=== PATIENT | female | born 1950 | race American Indian/Alaskan Native ===

== ENCOUNTER 2017-11-23 00:29 | Emergency (ER) | payer MEDICARE, OTHER ==
[2017-11-23] MEDS ORDERED: 50% Dextrose in Water 50 ML Syringe ONE (00:38)
[2017-11-23] MEDS ORDERED: 50% Dextrose in Water 50 ML Syringe IVPUSH ONE (00:40)
[2017-11-23] MEDS ORDERED: Dextrose 10% in Water 1,000 ML IV SCH (00:45)
--- NOTE | 2017-11-23 00:45 | EDM.PDOC ---
ED HPI GENERAL MEDICAL PROBLEM - General Chief Complaint: Diabetic Complaint Stated Complaint: LOW BLOOD SUGAR Time Seen by Provider: 11/23/17 00:35 Source of Information: Reports: EMS, EMS Notes Reviewed, Old Records History Limitations: Reports: No Limitations - History of Present Illness INITIAL COMMENTS - FREE TEXT/NARRATIVE: Chari arrives at [facility] ED by EMS following a call at 11:20 pm by spouse that she was unresponsive. She is a Type II DM on insulin, complicated by chronic renal failure and dialysis. EMS started an IV in the RUE, administered D50W 1 amp, and transported to ED. Upon arrival, patient still somnolent, BS 47 mg%, a second amp of D50W administered, followed by D10W at 100 ml per hr. Her med list is unavailable at this time, and spouse is not present. - Related Data Allergies Allergy/AdvReac Type Severity Reaction Status Date / Time No Known Allergies Allergy Verified 07/27/17 15:30 Home Meds: Home Meds Calcium Carbonate/Vitamin D3 [Calcium 500-Vit D3 200 Caplet] 2 tab PO BID [History] Glucagon,Human Recombinant [Glucagon Emergency Kit] 1 mg SUBCUT ASDIRECTED PRN 06/22/14 [History] Insulin Aspart [Novolog Flexpen] 3 units SUBCUT TIDM 06/22/14 [History] Insulin Glargine,Hum.Rec.Anlog [Lantus Solostar] 2 units SUBCUT QAM 06/22/14 [ History] Mycophenolate Mofetil [Cellcept] 1,000 mg PO BID 06/22/14 [History] cycloSPORINE [SandIMMUNE] 75 mg PO DAILY 06/22/14 [History] Benzonatate 100 mg PO TID PRN 07/27/17 [History] Darbepoetin Ralf in Polysorbat [Aranesp] 100 mcg IJ Q30D 07/27/17 [History] Ferrous Sulfate [Feosol] 325 mg PO TIDMEALS 07/27/17 [History] Furosemide 40 mg PO DAILY 07/27/17 [History] Labetalol [Normodyne] 100 mg PO BID 07/27/17 [History] Sodium Bicarbonate 650 mg PO BID 07/27/17 [History] amLODIPine [Norvasc] 5 mg PO DAILY 07/27/17 [History] hydrALAZINE [Apresoline] 10 mg PO BID 07/27/17 [History] Calcium Acetate [PhosLo] 667 mg TIDMEALS 11/23/17 [History] Loperamide [Imodium] 2 mg PO TID 11/23/17 [History] cycloSPORINE [Cyclosporine] 50 mg BEDTIME 11/23/17 [History] Past Medical History HEENT History: Reports: Other (See Below) 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 Cardiovascular History: Reports: High Cholesterol, Hypertension, Syncope, Other (See Below) Other Cardiovascular History: hyperlipidemia Gastrointestinal History: Reports: Irritable Bowel Syndrome Genitourinary History: Reports: Acute Renal Failure, Chronic Renal Insuffiency Musculoskeletal History: Reports: Osteoporosis Endocrine/Metabolic History: Reports: Diabetes, Type II Hematologic History: Reports: Anemia - Past Surgical History HEENT Surgical History: Reports: Other (See Below) Other HEENT Surgeries/Procedures: vitrectomy right eye GI Surgical History: Reports: Colonoscopy Female Surgical History: Reports: Other (See Below) Other Female Surgeries/Procedures: kidney transplant, dialysis fistula creation, Musculoskeletal Surgical History: Reports: Other (See Below) Other Musculoskeletal Surgeries/Procedures:: bone replaced by transplant Social & Family History - Tobacco Use Smoking Status *Q: Never Smoker Second Hand Smoke Exposure: No - Caffeine Use Caffeine Use: Reports: Soda - Recreational Drug Use Recreational Drug Use: No Drug Use in Last 12 Months: No ED ROS GENERAL - Review of Systems Review Of Systems: Unable To Obtain ED EXAM GENERAL NO PERIP PULSE - Physical Exam Exam: See Below Exam Limited By: Altered Mental Status General Appearance: No Apparent Distress, Lethargic Eye Exam: Bilateral Eye: EOMI, Normal Inspection, PERRL Ears: Normal External Exam Nose: Normal Inspection Throat/Mouth: Normal Inspection Head: Atraumatic, Normocephalic Neck: Normal Inspection, Supple, Non-Tender Respiratory/Chest: Lungs Clear, Normal Breath Sounds, Chest Non-Tender Cardiovascular: Regular Rate, Rhythm, No Edema, No Murmur GI/Abdominal: Normal Bowel Sounds, Soft, Non-Tender, No Organomegaly, No Distention, No Mass Back Exam: Normal Inspection Extremities: Normal Inspection, Other (fistula L elbow) Psychiatric: Flat Affect Skin Exam: Dry, Intact, No Rash, Cool Lymphatic: No Adenopathy Course - Vital Signs Text/Narrative:: Following assessment at the [facility] ED, a second amp of D50W was given which improved mentation. An IV D10W has also running at 100 ml/hr with improvement of BS 145 mg%. Screening labs noted Cr 5.4, BUN 40, P 5.9, BS 40 mg%, Hgb 12.1, WBC 7600, plts normal; BSs slowly improved over the next 3 hours. Patient was alert, orientated, and cooperative. Last Recorded V/S: Last Vital Signs Temp 33.9 C L 11/23/17 00:29 Pulse 48 L 11/23/17 00:29 Resp 12 11/23/17 00:29 BP 157/53 H 11/23/17 00:29 Pulse Ox 92 L 11/23/17 00:29 - Orders/Labs/Meds Orders: Active Orders 24 hr Category Date Time Status Dextrose 10% in Water 1,000 ml Med 11/23/17 00:45 Active IV ASDIRECTED Medication Orders Dextrose/Water (Dextrose 10% In Water) 1,000 mls @ 500 mls/hr IV ASDIRECTED [facility] Labs: Laboratory Tests 11/23/17 11/23/17 11/23/17 Range/Units 00:38 00:42 00:42 WBC 7.6 (4.5-12.0) X10-3/uL RBC 3.87 (3.23-5.20) x10(6)uL Hgb 12.1 (11.5-15.5) g/dL Hct 36.9 (30.0-51.3) % MCV 95.3 (80-96) fL MCH 31.3 (27.7-33.6) pg MCHC 32.9 (32.2-35.4) g/dL RDW 14.0 (11.5-15.5) % Plt Count 226 (125-369) X10(3)uL MPV 9.0 (7.4-10.4) fL Add Manual Diff Yes Neutrophils % (Manual) 66 (46-82) % Band Neutrophils % 2 (0-6) % Lymphocytes % (Manual) 22 (13-37) % Monocytes % (Manual) 8 (4-12) % Eosinophils % (Manual) 2 (0-5) % Sodium 139 (135-145) mmol/L Potassium 4.4 (3.5-5.3) mmol/L Chloride 105 (100-110) mmol/L Carbon Dioxide 25 (21-32) mmol/L BUN 44 H (7-18) mg/dL Creatinine 5.4 H* (0.55-1.02) mg/dL Est Cr Clr Drug Dosing TNP Estimated GFR (MDRD) 8 L (>60) BUN/Creatinine Ratio 8.1 L (9-20) Glucose 40 L* (80-116) mg/dL POC Glucose 41 L (80-116) mg/dL Calcium 8.1 L (8.6-10.2) mg/dL Phosphorus 5.9 H (2.6-4.6) mg/dL 11/23/17 11/23/17 11/23/17 Range/Units 01:04 02:02 02:34 WBC (4.5-12.0) X10-3/uL RBC (3.23-5.20) x10(6)uL Hgb (11.5-15.5) g/dL Hct (30.0-51.3) % MCV (80-96) fL MCH (27.7-33.6) pg MCHC (32.2-35.4) g/dL RDW (11.5-15.5) % Plt Count (125-369) X10(3)uL MPV (7.4-10.4) fL Add Manual Diff Neutrophils % (Manual) (46-82) % Band Neutrophils % (0-6) % Lymphocytes % (Manual) (13-37) % Monocytes % (Manual) (4-12) % Eosinophils % (Manual) (0-5) % Sodium (135-145) mmol/L Potassium (3.5-5.3) mmol/L Chloride (100-110) mmol/L Carbon Dioxide (21-32) mmol/L BUN (7-18) mg/dL Creatinine (0.55-1.02) mg/dL Est Cr Clr Drug Dosing Estimated GFR (MDRD) (>60) BUN/Creatinine Ratio (9-20) Glucose (80-116) mg/dL POC Glucose 151 H D 59 L D 63 L (80-116) mg/dL Calcium (8.6-10.2) mg/dL Phosphorus (2.6-4.6) mg/dL 11/23/17 11/23/17 11/23/17 Range/Units 03:07 03:39 04:13 WBC (4.5-12.0) X10-3/uL RBC (3.23-5.20) x10(6)uL Hgb (11.5-15.5) g/dL Hct (30.0-51.3) % MCV (80-96) fL MCH (27.7-33.6) pg MCHC (32.2-35.4) g/dL RDW (11.5-15.5) % Plt Count (125-369) X10(3)uL MPV (7.4-10.4) fL Add Manual Diff Neutrophils % (Manual) (46-82) % Band Neutrophils % (0-6) % Lymphocytes % (Manual) (13-37) % Monocytes % (Manual) (4-12) % Eosinophils % (Manual) (0-5) % Sodium (135-145) mmol/L Potassium (3.5-5.3) mmol/L Chloride (100-110) mmol/L Carbon Dioxide (21-32) mmol/L BUN (7-18) mg/dL Creatinine (0.55-1.02) mg/dL Est Cr Clr Drug Dosing Estimated GFR (MDRD) (>60) BUN/Creatinine Ratio (9-20) Glucose (80-116) mg/dL POC Glucose 103 133 H 190 H (80-116) mg/dL Calcium (8.6-10.2) mg/dL Phosphorus (2.6-4.6) mg/dL Meds: Medications Generic Name Dose Route Start Last Admin Trade Name Freq PRN Reason Stop Dose Admin Dextrose/Water 1,000 mls @ 500 mls/hr 11/23/17 00:45 Dextrose 10% In Water IV ASDIRECTED [facility] Discontinued Medications Generic Name Dose Route Start Last Admin Trade Name Freq PRN Reason Stop Dose Admin Dextrose/Water Confirm 11/23/17 00:38 Dextrose 50% In Water Administered 11/23/17 00:39 Dose 50 ml .ROUTE .STK-MED ONE Dextrose/Water 50 ml 11/23/17 00:40 Dextrose 50% In Water IVPUSH 11/23/17 00:41 ONETIME ONE Departure - Departure Time of Disposition: 04:30 Disposition: Home, Self-Care 01 Condition: Fair Clinical Impression: Hypoglycemia - Discharge Information Referrals: Svitlana Damon, [facility]OU[facility] AIDE [Primary Care Provider] - Forms: ED Department Discharge - Problem List & Annotations (1) Hypoglycemia SNOMED Code(s): 876001722 Code(s): E16.2 - HYPOGLYCEMIA, UNSPECIFIED Status: Acute Current Visit: Yes Annotation/Comment:: Chari took some solid food and some beverages before discharge, and was encouraged to do so at home this am. - Problem List Review Problem List Initiated/Reviewed/Updated: Yes - My Orders Last 24 Hours: My Active Orders 11/23/17 00:45 Dextrose 10% in Water 1,000 ml IV ASDIRECTED - Assessment/Plan Last 24 Hours: My Active Orders 11/23/17 00:45 Dextrose 10% in Water 1,000 ml IV ASDIRECTED Plan: Follow up with PCP if needed.
[2017-11-23 03:52] VITALS: BP 157/53
== END 2017-11-23 04:54 | disposition home or self-care (01) ==
LOC: FB.ED 00:29
DX: E11.649 Type 2 diabetes mellitus with hypoglycemia without coma (principal); E11.22 Type 2 diabetes mellitus with diabetic chronic kidney disease; I12.9 Hypertensive chronic kidney disease with stage 1 through stage 4 chronic kidney disease, or unspecified chronic kidney disease; N18.9 Chronic kidney disease, unspecified; E78.00 Pure hypercholesterolemia, unspecified; Z79.4 Long term (current) use of insulin; Z79.899 Other long term (current) drug therapy; Z94.0 Kidney transplant status
CPT/HCPCS: 36415; 80048; 82962; 84100; 85025; 96361; 96374; 99284; J7060

== ENCOUNTER 2020-03-31 16:51 | Inpatient (IN) | payer MEDICARE, OTHER ==
--- NOTE | 2020-03-31 17:06 | EDM.PDOC ---
ED HPI GENERAL MEDICAL PROBLEM - General Time Seen by Provider: 03/31/20 17:02 Source of Information: Reports: Patient History Limitations: Reports: No Limitations - History of Present Illness INITIAL COMMENTS - FREE TEXT/NARRATIVE: pt comes from home with c/o profound weakness, dry cough , recurrent emesis and watery diarrhea since yesterday along with fever and chills, denies noticing blood, or SOB or any other associated sx , also denies recent travel or known sick contact. report Hx of DM and Hx of CRI . pt has Hx of HD followed by Kidney transplant about a year ago. - Related Data Allergies Allergy/AdvReac Type Severity Reaction Status Date / Time No Known Allergies Allergy Verified 03/31/20 17:28 Home Meds: Home Meds Insulin Aspart [Novolog Flexpen] 5 units SUBCUT TIDM 06/22/14 [History] Insulin Glargine,Hum.Rec.Anlog [Lantus Solostar] 20 units SUBCUT QAM 06/22/14 [History] Sodium Bicarbonate 650 mg PO BID 07/27/17 [History] amLODIPine [Norvasc] 10 mg PO BEDTIME 07/27/17 [History] Acetaminophen [Pain Relief] 650 mg PO Q4HR PRN 03/31/20 [History] Aspirin [Aspir 81] 81 mg PO DAILY 03/31/20 [History] Cholecalciferol (Vitamin D3) [Vitamin D3] 2,000 unit PO DAILY 03/31/20 [History] Dapsone 50 mg PO DAILY 03/31/20 [History] Mycophenolate Sodium [Mycophenolic Acid] 720 mg PO BID 03/31/20 [History] Tacrolimus [Prograf] 1 mg PO DAILY 03/31/20 [History] atorvaSTATin [Lipitor] 10 mg PO BEDTIME 03/31/20 [History] carvediloL [Carvedilol] 12.5 mg PO BID 03/31/20 [History] metFORMIN HCl [Metformin HCl] 500 mg PO DAILY 03/31/20 [History] Past Medical History HEENT History: Reports: Other (See Below) 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 Cardiovascular History: Reports: High Cholesterol, Hypertension, Syncope, Other (See Below) Other Cardiovascular History: hyperlipidemia Gastrointestinal History: Reports: Irritable Bowel Syndrome Genitourinary History: Reports: Acute Renal Failure, Chronic Renal Insuffiency HAND 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 History: Reports: Other HAND DEVELOPER History: Musculoskeletal History: Reports: Osteoporosis Endocrine/Metabolic History: Reports: Diabetes, Type II Hematologic History: Reports: Anemia Immunologic History: Reports: Solid Organ Transplant Other Immunologic History: L kidney transplant - Infectious Disease History Infectious Disease History: Reports: C-Difficile, Mumps - Past Surgical History HEENT Surgical History: Reports: Other (See Below) Other HEENT Surgeries/Procedures: vitrectomy right eye GI Surgical History: Reports: Colonoscopy Female Surgical History: Reports: Other (See Below) Other Female Surgeries/Procedures: kidney transplant, dialysis fistula creation, Musculoskeletal Surgical History: Reports: Other (See Below) Other Musculoskeletal Surgeries/Procedures:: bone replaced by transplant Social & Family History - Family History Family Medical History: Noncontributory - Caffeine Use Caffeine Use: Reports: Soda ED ROS GENERAL - Review of Systems Review Of Systems: See Below Constitutional: Reports: Fever, Chills, Fatigue HEENT: Reports: No Symptoms Respiratory: Reports: Cough. Denies: Shortness of Breath, Wheezing Cardiovascular: Reports: No Symptoms, Dyspnea on Exertion. Denies: Chest Pain GI/Abdominal: Reports: Anorexia, Diarrhea, Nausea, Vomiting. Denies: Black Stool, Bloody Stool : Reports: No Symptoms Musculoskeletal: Reports: No Symptoms Skin: Reports: No Symptoms Neurological: Reports: No Symptoms ED EXAM, GENERAL - Physical Exam Exam: See Below Exam Limited By: No Limitations General Appearance: Alert, Moderate Distress Eye Exam: Bilateral Eye: Normal Inspection Ears: Normal External Exam Nose: Normal Inspection Throat/Mouth: Normal Inspection, Other (dry oral mucosa noted. ) Head: Atraumatic, Normocephalic Neck: Normal Inspection, Supple, Non-Tender Respiratory/Chest: No Respiratory Distress, Lungs Clear, Normal Breath Sounds Cardiovascular: Normal Peripheral Pulses, Regular Rate, Rhythm GI/Abdominal: Normal Bowel Sounds, Soft, Non-Tender, No Organomegaly Back Exam: Normal Inspection Extremities: Normal Inspection Neurological: Alert, Oriented, CN II-XII Intact, Normal Reflexes Skin Exam: Warm Course - Vital Signs Text/Narrative:: labs and CXR results were explained to pt. pt is resting comfortably after fluids and O2 and tylenol. pt has ? infl at RLL and UTI . will admit acute, blood culture were taken , rocephin and zithromax will be started. Last Recorded V/S: Last Vital Signs Temp 39.3 C H 03/31/20 16:51 Pulse 100 03/31/20 16:51 Resp 16 03/31/20 16:51 BP 146/53 H 03/31/20 16:51 Pulse Ox 84 L 03/31/20 16:51 - Orders/Labs/Meds Orders: Active Orders 24 hr Category Date Time Status Patient Status [ADT] Routine ADT 03/31/20 18:42 Active Blood Glucose Check, Bedside [RC] TIDMEALS Care 03/31/20 18:33 Active Oxygen Therapy [RC] PRN Care 03/31/20 18:42 Active RT Aerosol Therapy [RC] ASDIRECTED Care 03/31/20 18:46 Active Up With Assistance [RC] ASDIRECTED Care 03/31/20 18:33 Active VTE/DVT Education [RC] Per Unit Routine Care 03/31/20 18:42 Active Vital Signs [RC] Q4H Care 03/31/20 18:42 Active Consistent Carbohydrate Diet [DIET] Diet 03/31/20 Dinner Ordered Chest 1V Frontal [CR] Stat Exams 03/31/20 17:07 Taken BASIC METABOLIC PANEL,BMP [CHEM] AM Lab 04/01/20 05:11 Ordered CBC WITH AUTO DIFF [HEME] AM Lab 04/01/20 05:11 Ordered CULTURE BLOOD [BC] Urgent Lab 03/31/20 17:00 Received CULTURE BLOOD [BC] Urgent Lab 03/31/20 17:10 Received LACTIC ACID [CHEM] Stat Lab 03/31/20 17:10 Received Albuterol [Proventil Neb Soln] Med 03/31/20 18:33 Active 2.5 mg NEB Q2H PRN Azithromycin [Zithromax] 500 mg Med 03/31/20 18:45 Active Sodium Chloride 0.9% [Normal Saline (AdvBag)] 250 ml IV Q24H Enoxaparin [Lovenox] Med 03/31/20 18:45 Active 40 mg SUBCUT Q24H Ondansetron [Zofran ODT] Med 03/31/20 18:33 Active 4 mg PO Q4H PRN Sodium Chloride 0.9% [Normal Saline] 1,000 ml Med 03/31/20 18:45 Active IV ASDIRECTED Zolpidem [Ambien] Med 03/31/20 18:33 Active 5 mg PO BEDTIME PRN cefTRIAXone [Rocephin] 1 gm Med 03/31/20 18:45 Active Sodium Chloride 0.9% [Normal Saline] 50 ml IV Q24H polyethylene glycoL 3350 [MiraLAX] Med 03/31/20 18:33 Active 17 gm PO DAILY PRN Blood Culture x2 Reflex Set [OM.PC] Urgent Oth 03/31/20 18:30 Ordered Resuscitation Status Routine Resus Stat 03/31/20 18:33 Ordered Medication Orders Albuterol (Proventil Neb Soln) 2.5 mg NEB Q2H PRN PRN Reason: Shortness Of Breath/wheezing Amlodipine Besylate (Norvasc) 10 mg PO BEDTIME [facility] Aspirin (Halfprin) 81 mg PO DAILY [facility] Atorvastatin Calcium (Lipitor) 10 mg PO BEDTIME [facility] Carvedilol (Coreg) 12.5 mg PO BID [facility] Enoxaparin Sodium (Lovenox) 40 mg SUBCUT Q24H [facility] Ceftriaxone Sodium 1 gm/ (Sodium Chloride) 50 mls @ 200 mls/hr IV Q24H [facility] Azithromycin 500 mg/ Sodium (Chloride) 250 mls @ 250 mls/hr IV Q24H [facility] Sodium Chloride (Normal Saline) 1,000 mls @ 125 mls/hr IV ASDIRECTED [facility] Insulin Glargine (Lantus Solostar) 20 units SUBCUT QAM [facility] Metformin HCl (Glucophage) 500 mg PO DAILY [facility] Non-Formulary Medication (Acetaminophen [Acetaminophen]) 650 mg PO Q4HR PRN PRN Reason: Pain Non-Formulary Medication (Insulin Aspart [Novolog Flexpen]) 5 units SUBCUT TIDM [facility] Ondansetron HCl (Zofran Odt) 4 mg PO Q4H PRN PRN Reason: nausea, able to take PO Polyethylene Glycol (Miralax) 17 gm PO DAILY PRN PRN Reason: Constipation Sodium Bicarbonate (Sodium Bicarbonate) 650 mg PO BID [facility] Zolpidem Tartrate (Ambien) 5 mg PO BEDTIME PRN PRN Reason: Sleep Labs: Laboratory Tests 03/31/20 03/31/20 03/31/20 Range/Units 17:10 17:10 17:30 WBC 23.9 H (4.5-12.0) X10-3/uL RBC 3.65 (3.23-5.20) x10(6)uL Hgb 11.2 L (11.5-15.5) g/dL Hct 34.8 (30.0-51.3) % MCV 95.4 (80-96) fL MCH 30.6 (27.7-33.6) pg MCHC 32.1 L (32.2-35.4) g/dL RDW 13.8 (11.5-15.5) % Plt Count 209 (125-369) X10(3)uL Sodium 135 (135-145) mmol/L Potassium 4.2 (3.5-5.3) mmol/L Chloride 99 L D (100-110) mmol/L Carbon Dioxide 23 (21-32) mmol/L BUN 27 H D (7-18) mg/dL Creatinine 1.4 H (0.55-1.02) mg/dL Est Cr Clr Drug Dosing TNP Estimated GFR (MDRD) 37 L (>60) BUN/Creatinine Ratio 19.3 (9-20) Glucose 292 H D (80-116) mg/dL Calcium 8.5 L (8.6-10.2) mg/dL Total Bilirubin 0.8 (0.1-1.3) mg/dL AST 27 H (5-25) IU/L ALT 25 (12-36) U/L Alkaline Phosphatase 110 (56-112) IU/L Total Protein 7.6 (6.0-8.0) g/dL Albumin 3.5 (3.2-4.6) g/dL Globulin 4.1 g/dL Albumin/Globulin Ratio 0.9 Urine Color (YELLOW) Urine Appearance (CLEAR) Urine pH (5.0-6.5) Ur Specific [place] (1.010-1.025) Urine Protein (NEGATIVE) mg/dL Urine Glucose (UA) (NORMAL) mg/dL Urine Ketones (NEGATIVE) mg/dL Urine Occult Blood (NEGATIVE) Urine Nitrite (NEGATIVE) Urine Bilirubin (NEGATIVE) Urine Urobilinogen (NEGATIVE) mg/dL Ur Leukocyte Esterase (NEGATIVE) Urine RBC (0-5) Urine WBC (0-5) Ur Squamous Epith Cells (NS,R,O) Urine Bacteria (NS) SARS Virus RNA (PCR) Negative (NEGATIVE) 03/31/20 Range/Units 18:30 WBC (4.5-12.0) X10-3/uL RBC (3.23-5.20) x10(6)uL Hgb (11.5-15.5) g/dL Hct (30.0-51.3) % MCV (80-96) fL MCH (27.7-33.6) pg MCHC (32.2-35.4) g/dL RDW (11.5-15.5) % Plt Count (125-369) X10(3)uL Sodium (135-145) mmol/L Potassium (3.5-5.3) mmol/L Chloride (100-110) mmol/L Carbon Dioxide (21-32) mmol/L BUN (7-18) mg/dL Creatinine (0.55-1.02) mg/dL Est Cr Clr Drug Dosing Estimated GFR (MDRD) (>60) BUN/Creatinine Ratio (9-20) Glucose (80-116) mg/dL Calcium (8.6-10.2) mg/dL Total Bilirubin (0.1-1.3) mg/dL AST (5-25) IU/L ALT (12-36) U/L Alkaline Phosphatase (56-112) IU/L Total Protein (6.0-8.0) g/dL Albumin (3.2-4.6) g/dL Globulin g/dL Albumin/Globulin Ratio Urine Color Yellow (YELLOW) Urine Appearance Slightly cloudy (CLEAR) Urine pH 5.0 (5.0-6.5) Ur Specific [place] 1.015 (1.010-1.025) Urine Protein Trace (NEGATIVE) mg/dL Urine Glucose (UA) 100 H (NORMAL) mg/dL Urine Ketones 15 H (NEGATIVE) mg/dL Urine Occult Blood Moderate H (NEGATIVE) Urine Nitrite Positive H (NEGATIVE) Urine Bilirubin Negative (NEGATIVE) Urine Urobilinogen Normal (NEGATIVE) mg/dL Ur Leukocyte Esterase Small H (NEGATIVE) Urine RBC 5-10 H (0-5) Urine WBC 10-20 H (0-5) Ur Squamous Epith Cells Rare (NS,R,O) Urine Bacteria Many H (NS) SARS Virus RNA (PCR) (NEGATIVE) Meds: Medications Generic Name Dose Route Start Last Admin Trade Name Freq PRN Reason Stop Dose Admin Albuterol 2.5 mg 03/31/20 18:33 Proventil Neb Soln NEB Q2H PRN Shortness Of Breath/wheezing Amlodipine Besylate 10 mg 03/31/20 21:00 Norvasc PO BEDTIME [facility] Aspirin 81 mg 04/01/20 09:00 Halfprin PO DAILY [facility] Atorvastatin Calcium 10 mg 03/31/20 21:00 Lipitor PO BEDTIME [facility] Carvedilol 12.5 mg 03/31/20 21:00 Coreg PO BID [facility] Enoxaparin Sodium 40 mg 03/31/20 18:45 Lovenox SUBCUT Q24H [facility] Ceftriaxone Sodium 1 gm/ 50 mls @ 200 mls/hr 03/31/20 18:45 Sodium Chloride IV Q24H [facility] Azithromycin 500 mg/ Sodium 250 mls @ 250 mls/hr 03/31/20 18:45 Chloride IV Q24H [facility] Sodium Chloride 1,000 mls @ 125 mls/hr 03/31/20 18:45 Normal Saline IV ASDIRECTED [facility] Insulin Glargine 20 units 04/01/20 06:00 Lantus Solostar SUBCUT QAM [facility] Metformin HCl 500 mg 04/01/20 09:00 Glucophage PO DAILY [facility] Non-Formulary Medication 650 mg 03/31/20 18:47 Acetaminophen [Acetaminophen] PO Q4HR PRN Pain Non-Formulary Medication 5 units 04/01/20 08:00 Insulin Aspart [Novolog Flexpen] SUBCUT TIDM [facility] Ondansetron HCl 4 mg 03/31/20 18:33 Zofran Odt PO Q4H PRN nausea, able to take PO Polyethylene Glycol 17 gm 03/31/20 18:33 Miralax PO DAILY PRN Constipation Sodium Bicarbonate 650 mg 03/31/20 21:00 Sodium Bicarbonate PO BID [facility] Zolpidem Tartrate 5 mg 03/31/20 18:33 Ambien PO BEDTIME PRN Sleep Discontinued Medications Generic Name Dose Route Start Last Admin Trade Name Freq PRN Reason Stop Dose Admin Acetaminophen 650 mg 03/31/20 17:09 03/31/20 17:59 Tylenol PO 03/31/20 17:10 650 mg NOW ONE Administration Sodium Chloride 500 mls @ 999 drops/min 03/31/20 17:07 03/31/20 17:05 Normal Saline IV 03/31/20 17:14 999 drops/min .BOLUS ONE Administration Sodium Chloride 500 mls @ 999 mls/hr 03/31/20 17:20 Normal Saline IV 03/31/20 17:50 .BOLUS ONE Ondansetron HCl 4 mg 03/31/20 17:07 03/31/20 17:59 Zofran IVPUSH 03/31/20 17:08 4 mg ONETIME ONE Administration Departure - Departure Time of Disposition: 18:54 Disposition: Admitted As Inpatient 66 Clinical Impression: Pneumonia - Discharge Information Sepsis Event Note (ED) - Focused Exam Vital Signs: Vital Signs Temp Pulse Resp BP Pulse Ox 03/31/20 16:51 39.3 C H 100 16 146/53 H 84 L - My Orders Last 24 Hours: My Active Orders 03/31/20 Dinner Consistent Carbohydrate Diet [DIET] 03/31/20 17:00 CULTURE BLOOD [BC] Urgent 03/31/20 17:07 Chest 1V Frontal [CR] Stat 03/31/20 17:10 CULTURE BLOOD [BC] Urgent LACTIC ACID [CHEM] Stat 03/31/20 18:30 Blood Culture x2 Reflex Set [OM.PC] Urgent 03/31/20 18:33 Blood Glucose Check, Bedside [RC] TIDMEALS Up With Assistance [RC] ASDIRECTED Albuterol [Proventil Neb Soln] 2.5 mg NEB Q2H PRN Ondansetron [Zofran ODT] 4 mg PO Q4H PRN Zolpidem [Ambien] 5 mg PO BEDTIME PRN polyethylene glycoL 3350 [MiraLAX] 17 gm PO DAILY PRN Resuscitation Status Routine 03/31/20 18:42 Patient Status [ADT] Routine Oxygen Therapy [RC] PRN VTE/DVT Education [RC] Per Unit Routine Vital Signs [RC] Q4H 03/31/20 18:45 Azithromycin [Zithromax] 500 mg Sodium Chloride 0.9% [Normal Saline (AdvBag)] 250 ml IV Q24H Enoxaparin [Lovenox] 40 mg SUBCUT Q24H Sodium Chloride 0.9% [Normal Saline] 1,000 ml IV ASDIRECTED cefTRIAXone [Rocephin] 1 gm Sodium Chloride 0.9% [Normal Saline] 50 ml IV Q24H 03/31/20 18:46 RT Aerosol Therapy [RC] ASDIRECTED 04/01/20 05:11 BASIC METABOLIC PANEL,BMP [CHEM] AM CBC WITH AUTO DIFF [HEME] AM - Assessment/Plan Last 24 Hours: My Active Orders 03/31/20 Dinner Consistent Carbohydrate Diet [DIET] 03/31/20 17:00 CULTURE BLOOD [BC] Urgent 03/31/20 17:07 Chest 1V Frontal [CR] Stat 03/31/20 17:10 CULTURE BLOOD [BC] Urgent LACTIC ACID [CHEM] Stat 03/31/20 18:30 Blood Culture x2 Reflex Set [OM.PC] Urgent 03/31/20 18:33 Blood Glucose Check, Bedside [RC] TIDMEALS Up With Assistance [RC] ASDIRECTED Albuterol [Proventil Neb Soln] 2.5 mg NEB Q2H PRN Ondansetron [Zofran ODT] 4 mg PO Q4H PRN Zolpidem [Ambien] 5 mg PO BEDTIME PRN polyethylene glycoL 3350 [MiraLAX] 17 gm PO DAILY PRN Resuscitation Status Routine 03/31/20 18:42 Patient Status [ADT] Routine Oxygen Therapy [RC] PRN VTE/DVT Education [RC] Per Unit Routine Vital Signs [RC] Q4H 03/31/20 18:45 Azithromycin [Zithromax] 500 mg Sodium Chloride 0.9% [Normal Saline (AdvBag)] 250 ml IV Q24H Enoxaparin [Lovenox] 40 mg SUBCUT Q24H Sodium Chloride 0.9% [Normal Saline] 1,000 ml IV ASDIRECTED cefTRIAXone [Rocephin] 1 gm Sodium Chloride 0.9% [Normal Saline] 50 ml IV Q24H 03/31/20 18:46 RT Aerosol Therapy [RC] ASDIRECTED 04/01/20 05:11 BASIC METABOLIC PANEL,BMP [CHEM] AM CBC WITH AUTO DIFF [HEME] AM
[2020-03-31] MEDS ORDERED: Ondansetron 4 MG/2 ML SDV IVPUSH ONE (17:07)
[2020-03-31] MEDS ORDERED: Sodium Chloride 0.9% 500 ML IV ONE ×2 (17:07→17:20)
[2020-03-31] MEDS ORDERED: Acetaminophen 325 MG Tab PO ONE (17:09)
[2020-03-31] MEDS ORDERED: Zolpidem 5 MG Tab PO PRN (18:33)
[2020-03-31] MEDS ORDERED: Albuterol 0.083% 2.5 MG/3 ML Neb Soln NEB PRN (18:33)
[2020-03-31] MEDS ORDERED: Polyethylene Glycol 3350 Powder 17 GM Packet PO PRN (18:33)
[2020-03-31] MEDS ORDERED: Azithromycin 500 MG in Sodium Chloride 0.9% 250 ML IV SCH (18:45)
[2020-03-31] MEDS ORDERED: cefTRIAXone 1 GM in Sodium Chloride 0.9% 50 ML IV SCH (18:45)
[2020-03-31] MEDS: Sodium Chloride 0.9% 1,000 ML IV SCH (18:50)
[2020-03-31] MEDS: Enoxaparin 40 MG/0.4 ML Syringe SUBCUT SCH (20:08)
[2020-03-31] MEDS ORDERED: amLODIPine 5 MG Tab PO SCH (21:00)
[2020-03-31] MEDS: cefTRIAXone 1 GM Vial IVPUSH SCH (21:11)
[2020-03-31] MEDS: Carvedilol 12.5 MG Tab PO SCH (22:31)
[2020-03-31] MEDS: atorvaSTATin 10 MG Tab PO SCH (22:32)
[2020-03-31] MEDS: Sodium Bicarbonate 650 MG Tab PO SCH (22:33)
[2020-03-31] MEDS: Ondansetron 4 MG Tab.DIS PO PRN (22:37)
[2020-03-31] MEDS: Acetaminophen 325 MG Tab PO PRN (22:40)
[2020-03-31] MEDS ORDERED: Tacrolimus 1 MG Cap PO ONE (23:00)
[2020-03-31] MEDS: MYCOPHENOLATE 180 MG PO SCH (23:14)
[2020-04-01] MEDS: Acetaminophen 325 MG Tab PO PRN ×4 (03:26→16:38)
[2020-04-01] MEDS: Ondansetron 4 MG Tab.DIS PO PRN ×2 (03:45→08:37)
[2020-04-01] MEDS: Sodium Chloride 0.9% 1,000 ML IV SCH ×3 (04:10→22:13)
[2020-04-01] MEDS ORDERED: Insulin Glargine,Human Rec. Analog 100 Units/ML 3 ML Pen SUBCUT SCH (06:00)
[2020-04-01] MEDS ORDERED: metFORMIN 500 MG Tab PO SCH (08:00)
[2020-04-01] MEDS ORDERED: Insulin Lispro 100 Unit/ML 3 ML KwikPen SUBCUT ONE (09:07)
[2020-04-01] MEDS: Doxycycline 100 MG in Sodium Chloride 0.9% 100 ML IV SCH ×2 (09:11→20:10)
[2020-04-01] MEDS: Insulin Lispro 100 Unit/ML 3 ML KwikPen SUBCUT SCH ×3 (09:18→17:49)
[2020-04-01] MEDS ORDERED: Promethazine 12.5 MG in Sodium Chloride 0.9% 50 ML IV PRN (10:16)
--- NOTE | 2020-04-01 10:25 | CR ---
CHEST ONE VIEW INDICATION: Cough. AP upright portable view of the chest 03/31/2020 was compared with 04/08/2009. The heart did not appear enlarged allowing for the AP positioning. The aorta is tortuous to a minimal degree with calcification in the arch that is progressive compared with the previous study. Overlying EKG leads are noted. No consolidating pneumonia or effusion was identified. There is some relative flattening of the diaphragm leaves which is compatible with progressive COPD along with hyperaeration present. A definite active infiltrate or effusion was not identified. However, there is bronchial wall cuffing at the lung bases which should be correlated clinically as it could represent active peribronchial disease. IMPRESSION: 1. Bronchial wall cuffing at the lung bases--correlate clinically. 2. COPD, progressive. 3. ASD aorta. MTDD
[2020-04-01] MEDS: MYCOPHENOLATE 180 MG PO SCH ×2 (10:36→21:11)
[2020-04-01] MEDS: Carvedilol 12.5 MG Tab PO SCH ×2 (10:36→20:32)
[2020-04-01] MEDS: Aspirin 81 MG Tab.EC PO SCH (10:37)
[2020-04-01] MEDS: Tacrolimus 1 MG Cap PO SCH ×2 (10:38→20:33)
[2020-04-01] MEDS: Sodium Bicarbonate 650 MG Tab PO SCH ×2 (10:38→20:33)
--- NOTE | 2020-04-01 11:10 | PCM.HP.2 ---
H&P History of Present Illness - General Date of Service: 04/01/20 Admit Problem/Dx: Admission Diagnosis/Problem Admission Diagnosis/Problem Pneumonia, UTI Source of Information: Patient, EMS Notes Reviewed - History of Present Illness Initial Comments - Free Text/Narative: Chari presented to ER yesterday with 1 day history of fevers, chills, dry cough, nausea, vomiting and diarrhea. Denies any runny nose, sore throat, chest pain, heart conditions/murmurs, abdominal pain, dysuria, joint/leg pain, rashes, easily bruising or bleeding. Had increased frequency. History of Diabetes, kidney dialysis with kidney transplant a year ago. She is on Prograf, Dapsone and Mycophenolate for her kidney transplant. Had fevers overnight with nausea, dry heaving, Tylenol and Zofran given which helped symptoms. Took her medications late this morning due to the nausea, dry heaving earlier today. COVID negative. Found to have pneumonia with WBC 23.9, Lactic acid 2.3, was hypertension, febrile, admitted to floor yesterday evening on Rocephin & Azithromycin. Also found to have UTI with positive nitrites, rare epithelial cells, bacteria on cathed specimen. - Related Data Allergies/Adverse Reactions: Allergies Allergy/AdvReac Type Severity Reaction Status Date / Time No Known Allergies Allergy Verified 03/31/20 17:28 Home Medications: Home Meds Insulin Aspart [Novolog Flexpen] 5 units SUBCUT TIDM 06/22/14 [History] Insulin Glargine,Hum.Rec.Anlog [Lantus Solostar] 20 units SUBCUT BEDTIME 06/22/14 [History] Sodium Bicarbonate 650 mg PO BID 07/27/17 [History] amLODIPine [Norvasc] 10 mg PO BEDTIME 07/27/17 [History] Acetaminophen [Pain Relief] 650 mg PO Q4HR PRN 03/31/20 [History] Aspirin [Aspir 81] 81 mg PO DAILY 03/31/20 [History] Cholecalciferol (Vitamin D3) [Vitamin D3] 2,000 unit PO DAILY 03/31/20 [History] Dapsone 50 mg PO DAILY 03/31/20 [History] Mycophenolate Sodium [Mycophenolic Acid] 720 mg PO BID 03/31/20 [History] Tacrolimus [Prograf] 1 mg PO BID 03/31/20 [History] atorvaSTATin [Lipitor] 10 mg PO BEDTIME 03/31/20 [History] carvediloL [Carvedilol] 12.5 mg PO BID 03/31/20 [History] metFORMIN HCl [Metformin HCl] 500 mg PO DAILY 03/31/20 [History] Psyllium [Metamucil] 1.04 mg PO BID 04/01/20 [History] Past Medical History HEENT History: Reports: Other (See Below) 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 Cardiovascular History: Reports: High Cholesterol, Hypertension, Syncope, Other (See Below) Other Cardiovascular History: hyperlipidemia Gastrointestinal History: Reports: Irritable Bowel Syndrome Genitourinary History: Reports: Acute Renal Failure, Chronic Renal Insuffiency 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/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 History: Musculoskeletal History: Reports: Osteoporosis Endocrine/Metabolic History: Reports: Diabetes, Type II Hematologic History: Reports: Anemia Immunologic History: Reports: Solid Organ Transplant Other Immunologic History: L kidney transplant - Infectious Disease History Infectious Disease History: Reports: C-Difficile, Mumps - Past Surgical History HEENT Surgical History: Reports: Other (See Below) Other HEENT Surgeries/Procedures: vitrectomy right eye Cardiovascular Surgical History: Reports: None GI Surgical History: Reports: Colonoscopy Female Surgical History: Reports: Other (See Below) Other Female Surgeries/Procedures: kidney transplant, dialysis fistula creation, Social & Family History - Family History Family Medical History: Noncontributory - Tobacco Use Smoking Status *Q: Never Smoker Second Hand Smoke Exposure: No - Caffeine Use Caffeine Use: Reports: None - Recreational Drug Use Recreational Drug Use: No H&P Review of Systems - Review of Systems: Review Of Systems: Comprehensive ROS is negative, except as noted in HPI. Exam - Exam Exam: See Below - Vital Signs Vital Signs: Last Vital Signs Temp 102.2 F H 04/01/20 03:30 Pulse 95 04/01/20 10:36 Resp 20 04/01/20 03:07 BP 149/62 H 04/01/20 10:36 Pulse Ox 97 04/01/20 03:07 Weight: 146 lb - Exam General: Alert, Oriented, Cooperative, Mild Distress HEENT: PERRLA, Conjunctiva Clear, Hearing Intact Neck: Trachea Midline Lungs: Normal Respiratory Effort, Decreased Breath Sounds (Bibasilar), Rales (bibasilar). No: Wheezing Cardiovascular: Regular Rate, Regular Rhythm, Systolic Murmur GI/Abdominal Exam: Normal Bowel Sounds, Soft, Non-Tender, No Distention. No: Guarding, Rigid, Rebound (Female) Exam: Deferred Rectal (Female) Exam: Deferred Extremities: No Pedal Edema Peripheral Pulses: 2+: Radial (L), Radial (R), Posterior Tibial (L), Posterior Tibial (R), Dorsalis Pedis (L), Dorsalis Pedis (R) Skin: Warm, Dry, Intact Neurological: Cranial Nerves Intact, Normal Speech - Patient Data Lab Results Last 24 hrs: Laboratory Results - last 24 hr 03/31/20 03/31/20 03/31/20 Range/Units 16:56 17:10 17:10 WBC 23.9 H (4.5-12.0) X10-3/uL RBC 3.65 (3.23-5.20) x10(6)uL Hgb 11.2 L (11.5-15.5) g/dL Hct 34.8 (30.0-51.3) % MCV 95.4 (80-96) fL MCH 30.6 (27.7-33.6) pg MCHC 32.1 L (32.2-35.4) g/dL RDW 13.8 (11.5-15.5) % Plt Count 209 (125-369) X10(3)uL MPV (7.4-10.4) fL Add Manual Diff Neutrophils % (Manual) (46-82) % Lymphocytes % (Manual) (13-37) % Monocytes % (Manual) (4-12) % Sodium 135 (135-145) mmol/L Potassium 4.2 (3.5-5.3) mmol/L Chloride 99 L D (100-110) mmol/L Carbon Dioxide 23 (21-32) mmol/L BUN 27 H D (7-18) mg/dL Creatinine 1.4 H (0.55-1.02) mg/dL Est Cr Clr Drug Dosing TNP Estimated GFR (MDRD) 37 L (>60) BUN/Creatinine Ratio 19.3 (9-20) Glucose 292 H D (80-116) mg/dL POC Glucose 266 H (74-100) mg/dL Lactic Acid (0.4-2.0) mmol/L Calcium 8.5 L (8.6-10.2) mg/dL Total Bilirubin 0.8 (0.1-1.3) mg/dL AST 27 H (5-25) IU/L ALT 25 (12-36) U/L Alkaline Phosphatase 110 (56-112) IU/L Total Protein 7.6 (6.0-8.0) g/dL Albumin 3.5 (3.2-4.6) g/dL Globulin 4.1 g/dL Albumin/Globulin Ratio 0.9 Urine Color (YELLOW) Urine Appearance (CLEAR) Urine pH (5.0-6.5) Ur Specific [place] (1.010-1.025) Urine Protein (NEGATIVE) mg/dL Urine Glucose (UA) (NORMAL) mg/dL Urine Ketones (NEGATIVE) mg/dL Urine Occult Blood (NEGATIVE) Urine Nitrite (NEGATIVE) Urine Bilirubin (NEGATIVE) Urine Urobilinogen (NEGATIVE) mg/dL Ur Leukocyte Esterase (NEGATIVE) Urine RBC (0-5) Urine WBC (0-5) Ur Squamous Epith Cells (NS,R,O) Urine Bacteria (NS) SARS Virus RNA (PCR) (NEGATIVE) 03/31/20 03/31/20 03/31/20 Range/Units 17:10 17:30 18:30 WBC (4.5-12.0) X10-3/uL RBC (3.23-5.20) x10(6)uL Hgb (11.5-15.5) g/dL Hct (30.0-51.3) % MCV (80-96) fL MCH (27.7-33.6) pg MCHC (32.2-35.4) g/dL RDW (11.5-15.5) % Plt Count (125-369) X10(3)uL MPV (7.4-10.4) fL Add Manual Diff Neutrophils % (Manual) (46-82) % Lymphocytes % (Manual) (13-37) % Monocytes % (Manual) (4-12) % Sodium (135-145) mmol/L Potassium (3.5-5.3) mmol/L Chloride (100-110) mmol/L Carbon Dioxide (21-32) mmol/L BUN (7-18) mg/dL Creatinine (0.55-1.02) mg/dL Est Cr Clr Drug Dosing Estimated GFR (MDRD) (>60) BUN/Creatinine Ratio (9-20) Glucose (80-116) mg/dL POC Glucose (74-100) mg/dL Lactic Acid 2.3 H* (0.4-2.0) mmol/L Calcium (8.6-10.2) mg/dL Total Bilirubin (0.1-1.3) mg/dL AST (5-25) IU/L ALT (12-36) U/L Alkaline Phosphatase (56-112) IU/L Total Protein (6.0-8.0) g/dL Albumin (3.2-4.6) g/dL Globulin g/dL Albumin/Globulin Ratio Urine Color Yellow (YELLOW) Urine Appearance Slightly cloudy (CLEAR) Urine pH 5.0 (5.0-6.5) Ur Specific [place] 1.015 (1.010-1.025) Urine Protein Trace (NEGATIVE) mg/dL Urine Glucose (UA) 100 H (NORMAL) mg/dL Urine Ketones 15 H (NEGATIVE) mg/dL Urine Occult Blood Moderate H (NEGATIVE) Urine Nitrite Positive H (NEGATIVE) Urine Bilirubin Negative (NEGATIVE) Urine Urobilinogen Normal (NEGATIVE) mg/dL Ur Leukocyte Esterase Small H (NEGATIVE) Urine RBC 5-10 H (0-5) Urine WBC 10-20 H (0-5) Ur Squamous Epith Cells Rare (NS,R,O) Urine Bacteria Many H (NS) SARS Virus RNA (PCR) Negative (NEGATIVE) 03/31/20 04/01/20 04/01/20 Range/Units 20:15 06:20 06:20 WBC 21.4 H (4.5-12.0) X10-3/uL RBC 3.03 L (3.23-5.20) x10(6)uL Hgb 9.2 L (11.5-15.5) g/dL Hct 29.0 L (30.0-51.3) % MCV 95.8 (80-96) fL MCH 30.6 (27.7-33.6) pg MCHC 31.9 L (32.2-35.4) g/dL RDW 13.5 (11.5-15.5) % Plt Count 179 (125-369) X10(3)uL MPV 8.7 (7.4-10.4) fL Add Manual Diff Yes Neutrophils % (Manual) 88 H (46-82) % Lymphocytes % (Manual) 6 L (13-37) % Monocytes % (Manual) 6 (4-12) % Sodium 137 (135-145) mmol/L Potassium 4.4 (3.5-5.3) mmol/L Chloride 105 D (100-110) mmol/L Carbon Dioxide 23 (21-32) mmol/L BUN 23 H (7-18) mg/dL Creatinine 1.1 H (0.55-1.02) mg/dL Est Cr Clr Drug Dosing 39.93 Estimated GFR (MDRD) 49 L (>60) BUN/Creatinine Ratio 20.9 H (9-20) Glucose 220 H (80-116) mg/dL POC Glucose (74-100) mg/dL Lactic Acid 1.2 (0.4-2.0) mmol/L Calcium 7.8 L (8.6-10.2) mg/dL Total Bilirubin (0.1-1.3) mg/dL AST (5-25) IU/L ALT (12-36) U/L Alkaline Phosphatase (56-112) IU/L Total Protein (6.0-8.0) g/dL Albumin (3.2-4.6) g/dL Globulin g/dL Albumin/Globulin Ratio Urine Color (YELLOW) Urine Appearance (CLEAR) Urine pH (5.0-6.5) Ur Specific [place] (1.010-1.025) Urine Protein (NEGATIVE) mg/dL Urine Glucose (UA) (NORMAL) mg/dL Urine Ketones (NEGATIVE) mg/dL Urine Occult Blood (NEGATIVE) Urine Nitrite (NEGATIVE) Urine Bilirubin (NEGATIVE) Urine Urobilinogen (NEGATIVE) mg/dL Ur Leukocyte Esterase (NEGATIVE) Urine RBC (0-5) Urine WBC (0-5) Ur Squamous Epith Cells (NS,R,O) Urine Bacteria (NS) SARS Virus RNA (PCR) (NEGATIVE) 04/01/20 Range/Units 06:20 WBC (4.5-12.0) X10-3/uL RBC (3.23-5.20) x10(6)uL Hgb (11.5-15.5) g/dL Hct (30.0-51.3) % MCV (80-96) fL MCH (27.7-33.6) pg MCHC (32.2-35.4) g/dL RDW (11.5-15.5) % Plt Count (125-369) X10(3)uL MPV (7.4-10.4) fL Add Manual Diff Neutrophils % (Manual) (46-82) % Lymphocytes % (Manual) (13-37) % Monocytes % (Manual) (4-12) % Sodium (135-145) mmol/L Potassium (3.5-5.3) mmol/L Chloride (100-110) mmol/L Carbon Dioxide (21-32) mmol/L BUN (7-18) mg/dL Creatinine (0.55-1.02) mg/dL Est Cr Clr Drug Dosing Estimated GFR (MDRD) (>60) BUN/Creatinine Ratio (9-20) Glucose (80-116) mg/dL POC Glucose (74-100) mg/dL Lactic Acid 0.9 (0.4-2.0) mmol/L Calcium (8.6-10.2) mg/dL Total Bilirubin (0.1-1.3) mg/dL AST (5-25) IU/L ALT (12-36) U/L Alkaline Phosphatase (56-112) IU/L Total Protein (6.0-8.0) g/dL Albumin (3.2-4.6) g/dL Globulin g/dL Albumin/Globulin Ratio Urine Color (YELLOW) Urine Appearance (CLEAR) Urine pH (5.0-6.5) Ur Specific [place] (1.010-1.025) Urine Protein (NEGATIVE) mg/dL Urine Glucose (UA) (NORMAL) mg/dL Urine Ketones (NEGATIVE) mg/dL Urine Occult Blood (NEGATIVE) Urine Nitrite (NEGATIVE) Urine Bilirubin (NEGATIVE) Urine Urobilinogen (NEGATIVE) mg/dL Ur Leukocyte Esterase (NEGATIVE) Urine RBC (0-5) Urine WBC (0-5) Ur Squamous Epith Cells (NS,R,O) Urine Bacteria (NS) SARS Virus RNA (PCR) (NEGATIVE) Result Diagrams: 04/01/20 06:20 04/01/20 06:20 Sepsis Event Note - Evaluation Sepsis Screening Result: Sepsis Risk Possible Source of Sepsis: Pulmonary - Focused Exam Vital Signs: Vital Signs Temp Pulse Pulse Resp BP BP Pulse Ox 04/01/20 10:36 95 149/62 H 04/01/20 03:30 102.2 F H 04/01/20 03:07 99.2 F 98 20 135/55 L 97 04/01/20 02:18 04/01/20 00:05 99.1 F 93 20 140/52 L 95 Pulse Ox 04/01/20 10:36 04/01/20 03:30 04/01/20 03:07 04/01/20 02:18 95 04/01/20 00:05 Date Exam was Performed: 04/01/20 Time Exam was Performed: 11:17 *Q Meaningful Use (ADM) - VTE Risk Assess *Q Each Risk Factor Represents 1 Point: Serious lung disease including pneumonia Total Score 1 Point Risk Factors: 1 Each Risk Factor Represents 2 Points: Age 60 - 74 Years Total Score 2 Point Risk Factors: 2 Each Risk Factor Represents 3 Points: None Total Score 3 Point Risk Factors: 0 Each Risk Factor Represents 5 Points: None Total Score 5 Point Risk Factors: 0 Venous Thromboembolism Risk Factor Score *Q: 3 - Problem List (1) Pneumonia SNOMED Code(s): 153092295 ICD Code: J18.9 - PNEUMONIA, UNSPECIFIED ORGANISM Status: Acute Current Visit: Yes (2) UTI (urinary tract infection) SNOMED Code(s): 98498300 ICD Code: N39.0 - URINARY TRACT INFECTION, SITE NOT SPECIFIED Status: Acute Current Visit: Yes Problem Details: Cathed specimen, positive nitrites, rare epithelials. Urine culture pending. (3) History of kidney transplant Status: Chronic Current Visit: Yes Onset Date: ~03/2019 Problem Details: stated 1 year ago. 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 Problem List Initiated/Reviewed/Updated: Yes Orders Last 24hrs: Active Orders 24 hr Category Date Time Status Patient Status [ADT] Routine ADT 03/31/20 18:42 Active Blood Glucose Check, Bedside [RC] TIDMEALS Care 03/31/20 18:33 Active Oxygen Therapy [RC] 01 Care 03/31/20 18:42 Active RT Aerosol Therapy [RC] ASDIRECTED Care 03/31/20 18:46 Active Up With Assistance [RC] ASDIRECTED Care 03/31/20 18:33 Active Vital Signs [RC] 08,12,16,20,00,04 Care 03/31/20 18:42 Active Consistent Carbohydrate Diet [DIET] Diet 03/31/20 Dinner Ordered CULTURE BLOOD [BC] Urgent Lab 03/31/20 17:00 Received CULTURE BLOOD [BC] Urgent Lab 03/31/20 17:10 Received CULTURE URINE [RM] Stat Lab 03/31/20 18:30 Received Acetaminophen [Tylenol] Med 03/31/20 19:15 Active 650 mg PO Q4H PRN Albuterol [Proventil Neb Soln] Med 03/31/20 18:33 Active 2.5 mg NEB Q2H PRN Aspirin [Halfprin] Med 04/01/20 09:00 Active 81 mg PO DAILY Dapsone [Dapsone] Med 04/01/20 11:15 Ordered 50 mg PO DAILY Doxycycline [Vibramycin] 100 mg Med 04/01/20 09:00 Active Sodium Chloride 0.9% [Normal Saline] 100 ml IV Q12H Enoxaparin [Lovenox] Med 03/31/20 18:45 Active 40 mg SUBCUT Q24H Insulin Glarg,Human.Rec.Analog [LantUS Solostar] Med 04/01/20 06:00 Active 20 units SUBCUT QAM Insulin Lispro [HumaLOG] Med 04/01/20 08:00 Active 5 unit SUBCUT TID@0800,1200,1800 Ondansetron [Zofran ODT] Med 03/31/20 18:33 Active 4 mg PO Q4H PRN Patient's Own Medication [Ptom] Med 03/31/20 23:15 Active 0 each PO BID@1000,2200 Promethazine [Phenergan] 12.5 mg Med 04/01/20 10:16 Active Sodium Chloride 0.9% [Normal Saline] 50 ml IV Q4H Sodium Bicarbonate Med 03/31/20 21:00 Active 650 mg PO BID Sodium Chloride 0.9% [Normal Saline] 1,000 ml Med 03/31/20 18:45 Active IV ASDIRECTED Tacrolimus [Prograf] Med 04/01/20 09:00 Active 1 mg PO Q12H Zolpidem [Ambien] Med 03/31/20 18:33 Active 5 mg PO BEDTIME PRN amLODIPine [Norvasc] Med 04/01/20 21:00 Active 10 mg PO BEDTIME atorvaSTATin [Lipitor] Med 03/31/20 21:00 Active 10 mg PO BEDTIME carvediloL [Coreg] Med 03/31/20 21:00 Active 12.5 mg PO BID cefTRIAXone [Rocephin] Med 03/31/20 20:00 Active 1 gm IVPUSH Q24H metFORMIN [Glucophage] Med 04/01/20 08:00 Hold 500 mg PO DAILY@0800 polyethylene glycoL 3350 [MiraLAX] Med 03/31/20 18:33 Active 17 gm PO DAILY PRN Blood Culture x2 Reflex Set [OM.PC] Urgent Oth 03/31/20 18:30 Ordered Resuscitation Status Routine Resus Stat 03/31/20 18:33 Ordered Medication Orders Acetaminophen (Tylenol) 650 mg PO Q4H PRN PRN Reason: FEVER/PAIN Last Admin: 04/01/20 08:36 Dose: 650 mg Documented by: Admin: 04/01/20 03:26 Dose: 650 mg Documented by: Admin: 03/31/20 22:40 Dose: 650 mg Documented by: ALO Albuterol (Proventil Neb Soln) 2.5 mg NEB Q2H PRN PRN Reason: Shortness Of Breath/wheezing Amlodipine Besylate (Norvasc) 10 mg PO BEDTIME [facility] Aspirin (Halfprin) 81 mg PO DAILY [facility] Last Admin: 04/01/20 10:37 Dose: 81 mg Documented by: BERTA Atorvastatin Calcium (Lipitor) 10 mg PO BEDTIME [facility] Last Admin: 03/31/20 22:32 Dose: 10 mg Documented by: ALO Carvedilol (Coreg) 12.5 mg PO BID [facility] Last Admin: 04/01/20 10:36 Dose: 12.5 mg Documented by: Admin: 03/31/20 22:31 Dose: 12.5 mg Documented by: ALO Ceftriaxone Sodium (Rocephin) 1 gm IVPUSH Q24H [facility] Last Admin: 03/31/20 21:11 Dose: 1 gm Documented by: ALO Enoxaparin Sodium (Lovenox) 40 mg SUBCUT Q24H [facility] Last Admin: 03/31/20 20:08 Dose: 40 mg Documented by: ALO Sodium Chloride (Normal Saline) 1,000 mls @ 125 mls/hr IV ASDIRECTED [facility] Last Admin: 04/01/20 04:10 Dose: 125 mls/hr Documented by: Infusion: 04/01/20 02:50 Dose: 125 mls/hr Documented by: Admin: 03/31/20 18:50 Dose: 125 mls/hr Documented by: ROSEMARIE Doxycycline Hyclate 100 mg/ (Sodium Chloride) 100 mls @ 100 mls/hr IV Q12H [facility] Last Admin: 04/01/20 09:11 Dose: 100 mls/hr Documented by: BERTA Promethazine HCl 12.5 mg/ (Sodium Chloride) 50.5 mls @ 200 mls/hr IV Q4H PRN PRN Reason: NAUSEA Insulin Glargine (Lantus Solostar) 20 units SUBCUT QAM [facility] Last Admin: 04/01/20 10:46 Dose: Not Given Documented by: BERTA Insulin Human Lispro (Humalog) 5 unit SUBCUT TID@0800,1200,1800 [facility] Last Admin: 04/01/20 09:18 Dose: 5 units Documented by: BERTA Cosigned by: MATT Metformin HCl (Glucophage) 500 mg PO DAILY@0800 [facility] Last Admin: 04/01/20 10:41 Dose: Not Given Documented by: BERTA Non-Formulary Medication (Dapsone [Dapsone]) 50 mg PO DAILY [facility] Ondansetron HCl (Zofran Odt) 4 mg PO Q4H PRN PRN Reason: nausea, able to take PO Last Admin: 04/01/20 08:37 Dose: 4 mg Documented by: Admin: 04/01/20 03:45 Dose: 4 mg Documented by: Admin: 03/31/20 22:37 Dose: 4 mg Documented by: ALO Mycophenolate Dr 180mg Tab Own Med 0 each PO BID@1000,2200 [facility] Last Admin: 04/01/20 10:36 Dose: 4 each Documented by: Admin: 03/31/20 23:14 Dose: 4 each Documented by: ALO Polyethylene Glycol (Miralax) 17 gm PO DAILY PRN PRN Reason: Constipation Sodium Bicarbonate (Sodium Bicarbonate) 650 mg PO BID [facility] Last Admin: 04/01/20 10:38 Dose: 650 mg Documented by: Admin: 03/31/20 22:33 Dose: 650 mg Documented by: ALO Tacrolimus (Prograf) 1 mg PO Q12H [facility] Last Admin: 04/01/20 10:38 Dose: 1 mg Documented by: BERTA Zolpidem Tartrate (Ambien) 5 mg PO BEDTIME PRN PRN Reason: Sleep Assessment/Plan Comment:: 1. Admit for pneumonia, UTI, vomiting/diarrhea. 2. Continue Rocephin day 2, discontinue Azithromycin as it interacts with her Prograf for her kidney transplant, start Doxycycline 100 mg q12 IV. Repeat labs tomorrow. Lactic acid 2.3, came down to 1.2 then 0.9. Blood cultures pending. 3. UTI: Rocephin, urine culture pending. 4. Kidney transplant: continue Prograf takes 2 caps of 0.5 mg, she is okay doing 1 cap of 1 mg here, continue Dapsone for PCP prophylaxis, continue Mycophenolate bid. Creatinine 1.1 this morning. Continue IVF NS at 125 ml/hr. 5. DM: Lantus 20 units at bedtime and Humalog 5 units with meals, discontinued Metformin as could be compounding her nausea and diarrhea. If sugars not co ntrolled will switch her to sliding scale insulin at meals and bedtime. Accuchecks ac & hs. 6. DVT: Lovenox 40 mg SQ daily. 7. FULL CODE. 8. Adjust treatments as necessary. - Mortality Measure Prognosis:: Good
[2020-04-01] MEDS: DAPSONE 100 MG PO SCH (11:38)
[2020-04-01] MEDS: Enoxaparin 40 MG/0.4 ML Syringe SUBCUT SCH (17:49)
[2020-04-01] MEDS ORDERED: Azithromycin 500 MG in Sodium Chloride 0.9% 250 ML IV SCH (18:00)
[2020-04-01] MEDS: cefTRIAXone 1 GM Vial IVPUSH SCH (20:06)
[2020-04-01] MEDS ORDERED: Insulin Glargine,Human Rec. Analog 100 Units/ML 3 ML Pen SUBCUT ONE (20:16)
[2020-04-01] MEDS: atorvaSTATin 10 MG Tab PO SCH (20:33)
[2020-04-01] MEDS: amLODIPine 10 MG Tab PO SCH (20:33)
[2020-04-01] MEDS: Insulin Glargine,Human Rec. Analog 100 Units/ML 3 ML Pen SUBCUT SCH (20:34)
[2020-04-02] MEDS: Acetaminophen 325 MG Tab PO PRN (00:43)
[2020-04-02] MEDS: Sodium Chloride 0.9% 1,000 ML IV SCH ×2 (06:04→18:30)
[2020-04-02] MEDS: Insulin Lispro 100 Unit/ML 3 ML KwikPen SUBCUT SCH ×4 (08:57→17:32)
[2020-04-02] MEDS: Carvedilol 12.5 MG Tab PO SCH ×2 (08:58→20:10)
[2020-04-02] MEDS: Aspirin 81 MG Tab.EC PO SCH (09:00)
[2020-04-02] MEDS: DAPSONE 100 MG PO SCH (09:00)
[2020-04-02] MEDS: Doxycycline 100 MG in Sodium Chloride 0.9% 100 ML IV SCH ×2 (09:01→20:03)
[2020-04-02] MEDS: Sodium Bicarbonate 650 MG Tab PO SCH ×2 (09:01→20:08)
[2020-04-02] MEDS: Tacrolimus 1 MG Cap PO SCH ×2 (09:01→20:08)
[2020-04-02] MEDS: MYCOPHENOLATE 180 MG PO SCH ×2 (09:02→21:46)
--- NOTE | 2020-04-02 10:46 | PCM.PN ---
- General Info Date of Service: 04/02/20 Subjective Update: Chari is feeling better, had whirlpool bath this morning. She is still short of breath, not coughing much, no wheezing or chest pain. Nausea and vomiting are better. Had some jello/rice krispie bar yesterday, and had 1/4 of piece of toast with jelly this morning. Diarrhea states is same, she had IBS so not unusual for her. Had kidney transplant 06/09/2019 in [place]. Last A1c was 6.5% on 03/26/2020, last saw Dr Hinkle on 03/22/2020. She is on Basaglar 20 units at bedtime & Novalog 5 units with meals. Using her IS device, makes her cough. Held Metformin while inpatient. - Patient Data Vitals - Most Recent: Last Vital Signs Temp 98.1 F 04/02/20 08:00 Pulse 74 04/02/20 08:58 Resp 18 04/02/20 08:00 BP 135/51 L 04/02/20 08:58 Pulse Ox 95 04/02/20 08:00 Weight - Most Recent: 146 lb I&O - Last 24 Hours: Intake & Output 04/01/20 04/02/20 04/02/20 22:59 06:59 14:59 Intake Total 869 1107 Balance 869 1107 Lab Results Last 24 Hours: Laboratory Results - last 24 hr 04/01/20 04/01/20 04/01/20 Range/Units 11:38 17:35 22:12 WBC (4.5-12.0) X10-3/uL RBC (3.23-5.20) x10(6)uL Hgb (11.5-15.5) g/dL Hct (30.0-51.3) % MCV (80-96) fL MCH (27.7-33.6) pg MCHC (32.2-35.4) g/dL RDW (11.5-15.5) % Plt Count (125-369) X10(3)uL MPV (7.4-10.4) fL Add Manual Diff Neutrophils % (Manual) (46-82) % Lymphocytes % (Manual) (13-37) % Monocytes % (Manual) (4-12) % Sodium (135-145) mmol/L Potassium (3.5-5.3) mmol/L Chloride (100-110) mmol/L Carbon Dioxide (21-32) mmol/L BUN (7-18) mg/dL Creatinine (0.55-1.02) mg/dL Est Cr Clr Drug Dosing mL/min Estimated GFR (MDRD) (>60) BUN/Creatinine Ratio (9-20) Glucose (80-116) mg/dL POC Glucose 128 H 165 H 125 H (74-100) mg/dL Calcium (8.6-10.2) mg/dL 04/02/20 04/02/20 Range/Units 06:15 06:15 WBC 16.7 H (4.5-12.0) X10-3/uL RBC 3.04 L (3.23-5.20) x10(6)uL Hgb 9.4 L (11.5-15.5) g/dL Hct 29.1 L (30.0-51.3) % MCV 95.5 (80-96) fL MCH 31.0 (27.7-33.6) pg MCHC 32.5 (32.2-35.4) g/dL RDW 13.6 (11.5-15.5) % Plt Count 173 (125-369) X10(3)uL MPV 8.4 (7.4-10.4) fL Add Manual Diff Yes Neutrophils % (Manual) 87 H (46-82) % Lymphocytes % (Manual) 7 L (13-37) % Monocytes % (Manual) 6 (4-12) % Sodium 139 (135-145) mmol/L Potassium 3.5 (3.5-5.3) mmol/L Chloride 108 (100-110) mmol/L Carbon Dioxide 23 (21-32) mmol/L BUN 19 H (7-18) mg/dL Creatinine 1.0 (0.55-1.02) mg/dL Est Cr Clr Drug Dosing 43.92 mL/min Estimated GFR (MDRD) 55 L (>60) BUN/Creatinine Ratio 19.0 (9-20) Glucose 104 D (80-116) mg/dL POC Glucose (74-100) mg/dL Calcium 7.6 L (8.6-10.2) mg/dL David Results Last 24 Hours: Microbiology 03/31/20 17:10 Aerobic Blood Culture - Preliminary Blood - Venous - Lab Draw NO GROWTH AFTER 1 DAY Anaerobic Blood Culture - Preliminary NO GROWTH AFTER 1 DAY 03/31/20 17:00 Aerobic Blood Culture - Preliminary Blood - Venous NO GROWTH AFTER 1 DAY Anaerobic Blood Culture - Preliminary NO GROWTH AFTER 1 DAY 03/31/20 18:30 Urine Culture - Preliminary Urine, Catheterized Gram Negative Rods Med Orders - Current: Current Medications Acetaminophen (Tylenol) 650 mg PO Q4H PRN PRN Reason: FEVER/PAIN Last Admin: 04/02/20 00:43 Dose: 650 mg Documented by: Albuterol (Proventil Neb Soln) 2.5 mg NEB Q2H PRN PRN Reason: Shortness Of Breath/wheezing Amlodipine Besylate (Norvasc) 10 mg PO BEDTIME [facility] Last Admin: 04/01/20 20:33 Dose: 10 mg Documented by: Aspirin (Halfprin) 81 mg PO DAILY [facility] Last Admin: 04/02/20 09:00 Dose: 81 mg Documented by: Atorvastatin Calcium (Lipitor) 10 mg PO BEDTIME [facility] Last Admin: 04/01/20 20:33 Dose: 10 mg Documented by: Carvedilol (Coreg) 12.5 mg PO BID [facility] Last Admin: 04/02/20 08:58 Dose: 12.5 mg Documented by: Ceftriaxone Sodium (Rocephin) 1 gm IVPUSH Q24H [facility] Last Admin: 04/01/20 20:06 Dose: 1 gm Documented by: Enoxaparin Sodium (Lovenox) 40 mg SUBCUT Q24H [facility] Last Admin: 04/01/20 17:49 Dose: 40 mg Documented by: Sodium Chloride (Normal Saline) 1,000 mls @ 125 mls/hr IV ASDIRECTED [facility] Last Admin: 04/02/20 06:04 Dose: 125 mls/hr Documented by: Doxycycline Hyclate 100 mg/ (Sodium Chloride) 100 mls @ 100 mls/hr IV Q12H [facility] Last Admin: 04/02/20 09:01 Dose: 100 mls/hr Documented by: Promethazine HCl 12.5 mg/ (Sodium Chloride) 50.5 mls @ 200 mls/hr IV Q4H PRN PRN Reason: NAUSEA Insulin Glargine (Lantus Solostar) 20 units SUBCUT BEDTIME [facility] Last Admin: 08/10/20 20:34 Dose: 20 units Documented by: Insulin Human Lispro (Humalog) 5 unit SUBCUT TID@0800,1200,1800 [facility] Last Admin: 04/02/20 08:57 Dose: 5 units Documented by: (Dapsone [Dapsone] (100 Mg Tab)) 0 mg PO DAILY [facility] Last Admin: 04/02/20 09:00 Dose: 100 mg Documented by: Ondansetron HCl (Zofran Odt) 4 mg PO Q4H PRN PRN Reason: nausea, able to take PO Last Admin: 04/01/20 08:37 Dose: 4 mg Documented by: Mycophenolate Dr 180mg Tab Own Med 0 each PO BID@1000,2200 [facility] Last Admin: 04/02/20 09:02 Dose: 4 each Documented by: Polyethylene Glycol (Miralax) 17 gm PO DAILY PRN PRN Reason: Constipation Sodium Bicarbonate (Sodium Bicarbonate) 650 mg PO BID [facility] Last Admin: 04/02/20 09:01 Dose: 650 mg Documented by: Tacrolimus (Prograf) 1 mg PO Q12H [facility] Last Admin: 04/02/20 09:01 Dose: 1 mg Documented by: Zolpidem Tartrate (Ambien) 5 mg PO BEDTIME PRN PRN Reason: Sleep Discontinued Medications Acetaminophen (Tylenol) 650 mg PO NOW ONE Stop: 03/31/20 17:10 Last Admin: 03/31/20 17:59 Dose: 650 mg Documented by: Amlodipine Besylate (Norvasc) 10 mg PO BEDTIME [facility] Last Admin: 03/31/20 22:32 Dose: 10 mg Documented by: Sodium Chloride (Normal Saline) 500 mls @ 999 drops/min IV .BOLUS ONE Stop: 03/31/20 17:14 Last Admin: 03/31/20 17:05 Dose: 999 drops/min Documented by: Ceftriaxone Sodium 1 gm/ (Sodium Chloride) 50 mls @ 200 mls/hr IV Q24H [facility] Last Admin: 04/01/20 01:06 Dose: Not Given Documented by: Azithromycin 500 mg/ Sodium (Chloride) 250 mls @ 250 mls/hr IV Q24H [facility] Last Admin: 03/31/20 18:58 Dose: 250 mls/hr Documented by: Sodium Chloride (Normal Saline) 500 mls @ 999 mls/hr IV .BOLUS ONE Stop: 03/31/20 17:50 Last Admin: 03/31/20 18:15 Dose: 999 mls/hr Documented by: Insulin Glargine (Lantus Solostar) 20 units SUBCUT QAM [facility] Last Admin: 04/01/20 10:46 Dose: Not Given Documented by: Metformin HCl (Glucophage) 500 mg PO DAILY@0800 [facility] Last Admin: 04/01/20 10:41 Dose: Not Given Documented by: Ondansetron HCl (Zofran) 4 mg IVPUSH ONETIME ONE Stop: 03/31/20 17:08 Last Admin: 03/31/20 17:59 Dose: 4 mg Documented by: Tacrolimus (Prograf) 1 mg PO ONETIME ONE Stop: 03/31/20 23:01 Last Admin: 03/31/20 23:13 Dose: 1 mg Documented by: - Exam Quality Assessment: Supplemental Oxygen General: Alert, Oriented, Cooperative, No Acute Distress Lungs: Decreased Breath Sounds (bibasilar), Rhonchi (bibasilar). No: Crackles, Rales, Wheezing Cardiovascular: Regular Rate, Regular Rhythm GI/Abdominal Exam: Normal Bowel Sounds, Soft, Non-Tender, No Distention Extremities: No Pedal Edema Peripheral Pulses: 2+: Radial (L), Radial (R) Skin: Warm, Dry, Intact Sepsis Event Note - Evaluation Sepsis Screening Result: No Definite Risk - Focused Exam Vital Signs: Vital Signs Temp Pulse Pulse Resp BP BP Pulse Ox 04/02/20 08:58 74 135/51 L 04/02/20 08:00 98.1 F 74 18 135/51 L 95 04/02/20 06:30 97.9 F 70 18 134/56 L 95 04/02/20 04:00 99 F 72 18 118/52 L 93 L 04/02/20 02:00 101.5 F H 04/02/20 01:00 04/02/20 00:35 98.5 F 76 18 129/55 L 93 L Pulse Ox 04/02/20 08:58 04/02/20 08:00 04/02/20 06:30 04/02/20 04:00 04/02/20 02:00 04/02/20 01:00 95 04/02/20 00:35 - Problem List & Annotations (1) Pneumonia SNOMED Code(s): 917432801 Code(s): J18.9 - PNEUMONIA, UNSPECIFIED ORGANISM Status: Acute Current Visit: Yes (2) UTI (urinary tract infection) SNOMED Code(s): 69918186 Code(s): N39.0 - URINARY TRACT INFECTION, SITE NOT SPECIFIED Status: Acute Current Visit: Yes Annotation/Comment:: UC growing Gram negative rods, >100,000 cfu (3) History of kidney transplant Status: Chronic Current Visit: Yes Onset Date: ~03/2019 Annotation/Comment:: stated 1 year ago. (4) Diabetes SNOMED Code(s): 63485641 Code(s): E11.9 - TYPE 2 DIABETES MELLITUS WITHOUT COMPLICATIONS Status: Chronic Current Visit: Yes Qualifiers: Diabetes mellitus type: type 2 Diabetes mellitus prison insulin use: with prison use Diabetes mellitus complication detail: with other kidney complication Annotation/Comment:: Last A1c 6.5% on 03/26/2020. was on dialysis for 1 yr, had kidney transplant 06/09/2019 (5) IBS (irritable bowel syndrome) SNOMED Code(s): 16229611 Code(s): K58.9 - IRRITABLE BOWEL SYNDROME WITHOUT DIARRHEA Status: Acute Current Visit: Yes Qualifiers: Irritable bowel syndrome type: with diarrhea Qualified Code(s): K58.0 - Irritable bowel syndrome with diarrhea - Problem List Review Problem List Initiated/Reviewed/Updated: Yes - My Orders Last 24 Hours: My Active Orders 04/01/20 10:16 Promethazine [Phenergan] 12.5 mg Sodium Chloride 0.9% [Normal Saline] 50 ml IV Q4H 04/01/20 11:15 Dapsone [Dapsone] 0 mg PO DAILY 04/01/20 21:00 Insulin Glarg,Human.Rec.Analog [LantUS Solostar] 20 units SUBCUT BEDTIME - Plan Plan:: 1. Continue Rocephin day 3, Doxycycline 100 mg day 2. WBC 16.7 down from 21.4. Repeat labs tomorrow. Blood cultures: no growth x 1 day. 2. UTI: Rocephin, urine culture Gram negative rods(GNR), >100,000 cfu. 3. Kidney transplant: continue Prograf takes 2 caps of 0.5 mg, she is okay doing 1 cap of 1 mg here, continue Dapsone for PCP prophylaxis, continue Mycophenolate bid. Creatinine 1.2 this morning. Continue IVF NS at 125 ml/hr, as her oral intake improves will decrease fluids then saline lock. 4. DM: Lantus 20 units at bedtime and Humalog 5 units with meals, discontinued Metformin while here as her sugars are well controlled with insulin. Accuchecks ac & hs. 5. DVT: Lovenox 40 mg SQ daily. 6. Adjust treatments as necessary.
[2020-04-02] MEDS: Enoxaparin 40 MG/0.4 ML Syringe SUBCUT SCH (18:29)
[2020-04-02] MEDS: cefTRIAXone 1 GM Vial IVPUSH SCH (19:54)
[2020-04-02] MEDS: amLODIPine 10 MG Tab PO SCH (20:08)
[2020-04-02] MEDS: atorvaSTATin 10 MG Tab PO SCH (20:08)
[2020-04-02] MEDS: Insulin Glargine,Human Rec. Analog 100 Units/ML 3 ML Pen SUBCUT SCH (20:12)
[2020-04-03] MEDS: Insulin Lispro 100 Unit/ML 3 ML KwikPen SUBCUT SCH ×6 (08:11→17:33)
[2020-04-03] MEDS: Carvedilol 12.5 MG Tab PO SCH ×2 (08:12→21:23)
[2020-04-03] MEDS: DAPSONE 100 MG PO SCH (08:13)
[2020-04-03] MEDS: Tacrolimus 1 MG Cap PO SCH ×2 (08:13→21:25)
[2020-04-03] MEDS: Aspirin 81 MG Tab.EC PO SCH (08:13)
[2020-04-03] MEDS: Sodium Bicarbonate 650 MG Tab PO SCH ×2 (08:14→21:25)
[2020-04-03] MEDS: Doxycycline 100 MG in Sodium Chloride 0.9% 100 ML IV SCH (08:17)
[2020-04-03] MEDS ORDERED: Sodium Chloride 0.9% 10 ML Syringe FLUSH PRN (09:38)
[2020-04-03] MEDS: Potassium Chloride 10 MEQ Tab.ER PO SCH ×3 (09:39→21:23)
[2020-04-03] MEDS: MYCOPHENOLATE 180 MG PO SCH ×2 (09:41→21:26)
--- NOTE | 2020-04-03 10:01 | PCM.PN ---
- General Info Date of Service: 04/03/20 Subjective Update: Chari has been afebrile >24 hours now, feeling better. Eating without nausea/vomiting. Had diarrhea last evening but nothing overnight and this morning. Hasn't had breakfast yet. No abdominal pain. Weaned off oxygen. Added sliding scale yesterday to her meal times with her scheduled as here sugars jumped up to 300s, received extra 2 units at dinner, none needed this morning. - Patient Data Vitals - Most Recent: Last Vital Signs Temp 98.5 F 04/03/20 08:00 Pulse 71 04/03/20 08:12 Resp 18 04/03/20 08:00 BP 145/61 H 04/03/20 08:12 Pulse Ox 97 04/03/20 08:00 Weight - Most Recent: 146 lb I&O - Last 24 Hours: Intake & Output 04/02/20 04/03/20 04/03/20 22:59 06:59 14:59 Intake Total 1551 501 Balance 1551 501 Lab Results Last 24 Hours: Laboratory Results - last 24 hr 04/03/20 04/03/20 04/03/20 Range/Units 06:40 08:35 08:35 WBC 10.2 (4.5-12.0) X10-3/uL RBC 3.12 L (3.23-5.20) x10(6)uL Hgb 9.5 L (11.5-15.5) g/dL Hct 29.7 L (30.0-51.3) % MCV 95.2 (80-96) fL MCH 30.6 (27.7-33.6) pg MCHC 32.1 L (32.2-35.4) g/dL RDW 13.5 (11.5-15.5) % Plt Count 222 (125-369) X10(3)uL MPV 8.6 (7.4-10.4) fL Neut % (Auto) 80.5 (46-82) % Lymph % (Auto) 8.2 L (13-37) % [place] % (Auto) 10.4 (4-12) % Eos % (Auto) 1 (1.0-5.0) % Baso % (Auto) 0 (0-2) % Neut # (Auto) 8.2 (1.6-8.3) # Lymph # (Auto) 0.8 (0.6-5.0) # [place] # (Auto) 1.1 (0.0-1.3) # Eos # (Auto) 0.1 (0.0-0.8) # Baso # (Auto) 0.0 (0.0-0.2) # Sodium 138 (135-145) mmol/L Potassium 3.1 L (3.5-5.3) mmol/L Chloride 105 (100-110) mmol/L Carbon Dioxide 24 (21-32) mmol/L BUN 10 (7-18) mg/dL Creatinine 0.8 (0.55-1.02) mg/dL Est Cr Clr Drug Dosing 54.90 mL/min Estimated GFR (MDRD) > 60 (>60) BUN/Creatinine Ratio 12.5 (9-20) Glucose 142 H (80-116) mg/dL POC Glucose 138 H (74-100) mg/dL Calcium 8.1 L (8.6-10.2) mg/dL David Results Last 24 Hours: Microbiology 03/31/20 17:10 Aerobic Blood Culture - Preliminary Blood - Venous - Lab Draw NO GROWTH AFTER 2 DAYS Anaerobic Blood Culture - Preliminary NO GROWTH AFTER 2 DAYS 03/31/20 17:00 Aerobic Blood Culture - Preliminary Blood - Venous NO GROWTH AFTER 2 DAYS Anaerobic Blood Culture - Preliminary NO GROWTH AFTER 2 DAYS 03/31/20 18:30 Urine Culture - Final Urine, Catheterized Enterobacter Aerogenes Med Orders - Current: Current Medications Acetaminophen (Tylenol) 650 mg PO Q4H PRN PRN Reason: FEVER/PAIN Last Admin: 04/02/20 00:43 Dose: 650 mg Documented by: Albuterol (Proventil Neb Soln) 2.5 mg NEB Q2H PRN PRN Reason: Shortness Of Breath/wheezing Amlodipine Besylate (Norvasc) 10 mg PO BEDTIME [facility] Last Admin: 04/02/20 20:08 Dose: 10 mg Documented by: Aspirin (Halfprin) 81 mg PO DAILY [facility] Last Admin: 04/03/20 08:13 Dose: 81 mg Documented by: Atorvastatin Calcium (Lipitor) 10 mg PO BEDTIME [facility] Last Admin: 04/02/20 20:08 Dose: 10 mg Documented by: Carvedilol (Coreg) 12.5 mg PO BID [facility] Last Admin: 04/03/20 08:12 Dose: 12.5 mg Documented by: Ceftriaxone Sodium (Rocephin) 1 gm IVPUSH Q24H [facility] Last Admin: 04/02/20 19:54 Dose: 1 gm Documented by: Enoxaparin Sodium (Lovenox) 40 mg SUBCUT Q24H [facility] Last Admin: 04/02/20 18:29 Dose: 40 mg Documented by: Doxycycline Hyclate 100 mg/ (Sodium Chloride) 100 mls @ 100 mls/hr IV Q12H [facility] Last Admin: 04/03/20 08:17 Dose: 100 mls/hr Documented by: Promethazine HCl 12.5 mg/ (Sodium Chloride) 50.5 mls @ 200 mls/hr IV Q4H PRN PRN Reason: NAUSEA Insulin Glargine (Lantus Solostar) 20 units SUBCUT BEDTIME [facility] Last Admin: 04/02/20 20:12 Dose: 20 units Documented by: Insulin Human Lispro (Humalog) 5 unit SUBCUT TID@0800,1200,1800 [facility] Last Admin: 04/03/20 08:11 Dose: 5 units Documented by: Insulin Human Lispro (Humalog) 0 unit SUBCUT TID@0800,1200,1800 [facility]; Protocol Last Admin: 04/03/20 08:12 Dose: Not Given Documented by: (Dapsone [Dapsone] (100 Mg Tab)) 0 mg PO DAILY [facility] Last Admin: 04/03/20 08:13 Dose: 100 mg Documented by: Ondansetron HCl (Zofran Odt) 4 mg PO Q4H PRN PRN Reason: nausea, able to take PO Last Admin: 04/01/20 08:37 Dose: 4 mg Documented by: Mycophenolate Dr 180mg Tab Own Med 0 each PO BID@1000,2200 [facility] Last Admin: 04/03/20 09:41 Dose: 4 each Documented by: Polyethylene Glycol (Miralax) 17 gm PO DAILY PRN PRN Reason: Constipation Potassium Chloride (Klor-Con 10) 10 meq PO TID [facility] Stop: 04/05/20 09:31 Last Admin: 04/03/20 09:39 Dose: 10 meq Documented by: Sodium Bicarbonate (Sodium Bicarbonate) 650 mg PO BID [facility] Last Admin: 04/03/20 08:14 Dose: 650 mg Documented by: Sodium Chloride (Saline Flush) 10 ml FLUSH ASDIRECTED PRN PRN Reason: saline lock flush Tacrolimus (Prograf) 1 mg PO Q12H [facility] Last Admin: 04/03/20 08:13 Dose: 1 mg Documented by: Zolpidem Tartrate (Ambien) 5 mg PO BEDTIME PRN PRN Reason: Sleep Discontinued Medications Acetaminophen (Tylenol) 650 mg PO NOW ONE Stop: 03/31/20 17:10 Last Admin: 03/31/20 17:59 Dose: 650 mg Documented by: Amlodipine Besylate (Norvasc) 10 mg PO BEDTIME [facility] Last Admin: 03/31/20 22:32 Dose: 10 mg Documented by: Sodium Chloride (Normal Saline) 500 mls @ 999 drops/min IV .BOLUS ONE Stop: 03/31/20 17:14 Last Admin: 03/31/20 17:05 Dose: 999 drops/min Documented by: Ceftriaxone Sodium 1 gm/ (Sodium Chloride) 50 mls @ 200 mls/hr IV Q24H [facility] Last Admin: 04/01/20 01:06 Dose: Not Given Documented by: Azithromycin 500 mg/ Sodium (Chloride) 250 mls @ 250 mls/hr IV Q24H [facility] Last Admin: 03/31/20 18:58 Dose: 250 mls/hr Documented by: Sodium Chloride (Normal Saline) 500 mls @ 999 mls/hr IV .BOLUS ONE Stop: 03/31/20 17:50 Last Admin: 03/31/20 18:15 Dose: 999 mls/hr Documented by: Sodium Chloride (Normal Saline) 1,000 mls @ 75 mls/hr IV ASDIRECTED [facility] Last Infusion: 04/02/20 23:40 Dose: 75 mls/hr Documented by: Insulin Glargine (Lantus Solostar) 20 units SUBCUT QAM [facility] Last Admin: 04/01/20 10:46 Dose: Not Given Documented by: Metformin HCl (Glucophage) 500 mg PO DAILY@0800 [facility] Last Admin: 04/01/20 10:41 Dose: Not Given Documented by: Ondansetron HCl (Zofran) 4 mg IVPUSH ONETIME ONE Stop: 03/31/20 17:08 Last Admin: 03/31/20 17:59 Dose: 4 mg Documented by: Tacrolimus (Prograf) 1 mg PO ONETIME ONE Stop: 03/31/20 23:01 Last Admin: 03/31/20 23:13 Dose: 1 mg Documented by: - Exam General: Alert, Oriented, Cooperative, No Acute Distress Lungs: Clear to Auscultation (BUL), Normal Respiratory Effort, Decreased Breath Sounds (RLL>LLL). No: Crackles, Rhonchi, Wheezing Cardiovascular: Regular Rate, Regular Rhythm GI/Abdominal Exam: Normal Bowel Sounds, Soft, Non-Tender, No Distention Extremities: No Pedal Edema Sepsis Event Note - Evaluation Sepsis Screening Result: No Definite Risk - Focused Exam Vital Signs: Vital Signs Temp Pulse Pulse Resp BP BP Pulse Ox 04/03/20 08:12 71 145/61 H 04/03/20 08:00 98.5 F 71 18 145/61 H 97 04/03/20 02:52 98.7 F 69 16 124/49 L 04/03/20 00:00 16 - Problem List & Annotations (1) Pneumonia SNOMED Code(s): 587716890 Code(s): J18.9 - PNEUMONIA, UNSPECIFIED ORGANISM Status: Acute Current Visit: Yes Qualifiers: Laterality: right Lung location: lower lobe of lung Annotation/Comment:: Questionable RLL infiltrate, bronchial cuffing on CXR. Weaned off oxygen. COVID negative. WBC 10. Switch to oral antibiotics tonight to see if tolerates. Repeat CBC in am. (2) UTI (urinary tract infection) SNOMED Code(s): 51527401 Code(s): N39.0 - URINARY TRACT INFECTION, SITE NOT SPECIFIED Status: Acute Current Visit: Yes Annotation/Comment:: Enterobacter, sensitive to Ceftriaxone and doxycycline. Will switch to oral equavalents tonight and see if she tolerates them. (3) History of kidney transplant Status: Chronic Current Visit: Yes Onset Date: ~03/2019 Annotation/Comment :: stated 1 year ago. 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 was on dialysis for 1 yr, had kidney transplant 06/09/2019 (5) IBS (irritable bowel syndrome) SNOMED Code(s): 82470571 Code(s): K58.9 - IRRITABLE BOWEL SYNDROME WITHOUT DIARRHEA Status: Acute Current Visit: Yes Qualifiers: Irritable bowel syndrome type: with diarrhea Qualified Code(s): K58.0 - Irritable bowel syndrome with diarrhea (6) Hypokalemia SNOMED Code(s): 54023582 Code(s): E87.6 - HYPOKALEMIA Status: Acute Current Visit: Yes - Problem List Review Problem List Initiated/Reviewed/Updated: Yes - My Orders Last 24 Hours: My Active Orders 04/02/20 18:00 Insulin Lispro [HumaLOG] See Protocol SUBCUT TID@0800,1200,1800 04/03/20 07:47 Convert IV to Peripheral Lock [Convert IV to Saline Lock] [OM.PC] Routine 04/03/20 09:30 Potassium Chloride [Klor-Con 10] 10 meq PO TID 04/03/20 09:38 Sodium Chloride 0.9% [Saline Flush] 10 ml FLUSH ASDIRECTED PRN 04/04/20 06:00 BASIC METABOLIC PANEL,BMP [CHEM] Routine CBC WITH AUTO DIFF [HEME] Routine - Plan Plan:: 1. Continue Rocephin 3 doses, Doxycycline 100 mg day 3, switch to orals tonight. WBC 10.2 down from 16.7. Repeat labs tomorrow. Blood cultures: no growth x 2 day. 2. UTI: Rocephin, Enterobacter, sensitive to Rocephin & Doxycycline. 3. Kidney transplant: continue Prograf takes 2 caps of 0.5 mg, she is okay doing 1 cap of 1 mg here, continue Dapsone for PCP prophylaxis, continue Mycophenolate bid. Creatinine 0.8 this morning. Saline lock. 4. DM: Lantus 20 units at bedtime and Humalog 5 units with meals, discontinued Metformin while here as her sugars are well controlled with insulin. Accuchecks ac & hs. Diarrhea improved with discontinuing Metformin. Will have her see Dr Hinkle next week on adjusting her medications once she is home, eating her usual diet. 5. Hypokalemia: KCL 10 mEq tid x 2 days. 6. Adjust treatments as necessary.
[2020-04-03] MEDS: Enoxaparin 40 MG/0.4 ML Syringe SUBCUT SCH (18:00)
[2020-04-03] MEDS: atorvaSTATin 10 MG Tab PO SCH (21:24)
[2020-04-03] MEDS: Insulin Glargine,Human Rec. Analog 100 Units/ML 3 ML Pen SUBCUT SCH (21:24)
[2020-04-03] MEDS: amLODIPine 10 MG Tab PO SCH (21:25)
[2020-04-03] MEDS: Cefdinir 300 MG Cap PO SCH (21:25)
[2020-04-03] MEDS: Doxycycline 100 MG Tab PO SCH (21:26)
[2020-04-04] MEDS: Insulin Lispro 100 Unit/ML 3 ML KwikPen SUBCUT SCH ×4 (09:00→13:15)
[2020-04-04] MEDS: Carvedilol 12.5 MG Tab PO SCH (09:36)
[2020-04-04] MEDS: Tacrolimus 1 MG Cap PO SCH (09:38)
[2020-04-04] MEDS: Potassium Chloride 10 MEQ Tab.ER PO SCH (09:38)
[2020-04-04] MEDS: Cefdinir 300 MG Cap PO SCH (09:38)
[2020-04-04] MEDS: Aspirin 81 MG Tab.EC PO SCH (09:38)
[2020-04-04] MEDS: Sodium Bicarbonate 650 MG Tab PO SCH (09:39)
[2020-04-04] MEDS: DAPSONE 100 MG PO SCH (09:40)
[2020-04-04] MEDS: Doxycycline 100 MG Tab PO SCH (09:40)
[2020-04-04] MEDS: MYCOPHENOLATE 180 MG PO SCH (09:41)
[2020-04-04 09:42] VITALS: PULSE 68
[2020-04-04 10:04] VITALS: BP 150/63
--- NOTE | 2020-04-04 11:32 | PCM.DCSUM1 ---
Discharge Summary - Hospital Course HPI Initial Comments: Chari presented to ER yesterday with 1 day history of fevers, chills, dry cough, nausea, vomiting and diarrhea. Denies any runny nose, sore throat, chest pain, heart conditions/murmurs, abdominal pain, dysuria, joint/leg pain, rashes, easily bruising or bleeding. Had increased frequency. History of Diabetes, kidney dialysis with kidney transplant a year ago. She is on Prograf, Dapsone and Mycophenolate for her kidney transplant. Had fevers overnight with nausea, dry heaving, Tylenol and Zofran given which helped symptoms. Took her medications late this morning due to the nausea, dry heaving earlier today. COVID negative. Found to have pneumonia with WBC 23.9, Lactic acid 2.3, was hypertension, febrile, admitted to floor yesterday evening on Rocephin & Azithromycin. Also found to have UTI with positive nitrites, rare epithelial cells, bacteria on cathed specimen. Diagnosis: Stroke: No - Discharge Data Discharge Date: 04/04/20 Discharge Disposition: Home, Self-Care 01 Condition: Stable - Referral to Home Health Primary Care Physician: Dean Hinkle MD - Discharge Diagnosis/Problem(s) (1) Pneumonia SNOMED Code(s): 845682185 ICD Code: J18.9 - PNEUMONIA, UNSPECIFIED ORGANISM Status: Acute Current Visit: Yes Problem Details: Questionable RLL infiltrate, bronchial cuffing on CXR. Weaned off oxygen. COVID negative. WBC 8.1 Tolerated oral antibiotics, home today. Qualifiers: Laterality: right Lung location: lower lobe of lung (2) UTI (urinary tract infection) SNOMED Code(s): 97085567 ICD Code: N39.0 - URINARY TRACT INFECTION, SITE NOT SPECIFIED Status: Acute Current Visit: Yes Problem Details: Enterobacter, sensitive to Ceftriaxone and doxycycline. Tolerated oral antibiotics, will go home today to finish 7 day course. (3) History of kidney transplant Status: Chronic Current Visit: Yes Onset Date: ~06/09/19 (4) Diabetes SNOMED Code(s): 42482415 ICD Code: E11.9 - TYPE 2 DIABETES MELLITUS WITHOUT COMPLICATIONS Status: Chronic Current Visit: Yes Problem Details: Last A1c 6.5% on 03/26/2020. was on dialysis for 1 yr, had kidney transplant 06/09/2019 Qualifiers: Diabetes mellitus type: type 2 Diabetes mellitus long term acute care registered nurse insulin use: with fdc use Diabetes mellitus complication detail: with other kidney complication (5) IBS (irritable bowel syndrome) SNOMED Code(s): 73644260 ICD Code: K58.9 - IRRITABLE BOWEL SYNDROME WITHOUT DIARRHEA Status: Acute Current Visit: Yes Qualifiers: Irritable bowel syndrome type: with diarrhea Qualified Code(s): K58.0 - Irritable bowel syndrome with diarrhea (6) Hypokalemia SNOMED Code(s): 70648302 ICD Code: E87.6 - HYPOKALEMIA Status: Resolved Current Visit: Yes - Patient Summary/Data Hospital Course: Chari was admitted for Pneumonia, UTI with WBC of 23.9, received Rocephin & Azithromycin in ER, azithromycin was discontinued next morning due to interaction with her Prograf for her kidney transplant. Switched to Doxycycline and continued Rocephin, received total 7 doses doxycycline, 3 doses of Rocephin and 2 doses of Cefdinir, will continue Cefdinir 6 doses and Doxycycline 7 doses to complete 7 day course of antibiotics. Her WBC trended down to 8.1 on day of discharge. Weaned off oxygen on Wednesday. Had fevers continually from admission through Wednesday morning, has been afebrile >48 hours at time of discharge. Blood cultures: no growth x 3 days. Urine culture: Enterobacter sensitive to Rocephin & Tetracyclines. Had nausea/vomiting on the , diet was advanced on Wednesday w hich she has been tolerating. Her metformin was discontinued for creatinine 1.4 and persistent diarrhea with her IBS. Creatinine today was 0.7. She was given formulary substitute Lantus 20 units at bedtime for her home Basaglar, and Humalog 5 units tid for her home Novolog. She had a few blood sugars in 300s so sliding scale was added in addition to her meal time schedule dose. She required 2-3 units a day of sliding scale. Will go home on home insulins, and will follow up with Dr Hinkle in regards to her diabetes control off Metformin. She also had episode of hypokalemia, replaced with oral potassium, corrected to 3.6 today. - Patient Instructions Diet: Drink 8-10+ Glasses/Day, Diabetic Diet Activity: As Tolerated Showering/Bathing: May Shower Notify Provider of: Fever, Increased Pain, Nausea and/or Vomiting Other/Special Instructions: Follow up with Dr Hinkle or Angelito Perry PA-C at [facility] in 1 week to follow up on Pneumonia, UTI and Diabetes. Your metformin was discontinued since you have daily diarrhea as well as to avoi d renal effects with your transplanted kidney. You will continue on your home doses of Basaglar and Novolog. - Discharge Plan *PRESCRIPTION DRUG MONITORING PROGRAM REVIEWED*: Not Applicable *COPY OF PRESCRIPTION DRUG MONITORING REPORT IN PATIENT VERA: Not Applicable Prescriptions/Med Rec: Cefdinir [Omnicef] 300 mg PO BID 3 Days #6 cap Doxycycline [Vibra-Tabs] 100 mg PO Q12H #7 tablet Home Medications: Home Meds Insulin Aspart [Novolog Flexpen] 5 units SUBCUT TIDM 06/22/14 [History] Sodium Bicarbonate 650 mg PO BID 07/27/17 [History] amLODIPine [Norvasc] 10 mg PO BEDTIME 07/27/17 [History] Acetaminophen 650 mg PO Q4HR PRN 03/31/20 [History] Aspirin [Aspir 81] 81 mg PO DAILY 03/31/20 [History] Cholecalciferol (Vitamin D3) [Vitamin D3] 2,000 unit PO DAILY 03/31/20 [History] Dapsone 50 mg PO DAILY 03/31/20 [History] Mycophenolate Sodium [Mycophenolic Acid] 720 mg PO BID 03/31/20 [History] Tacrolimus [Prograf] 1 mg PO BID 03/31/20 [History] atorvaSTATin [Lipitor] 10 mg PO BEDTIME 03/31/20 [History] carvediloL [Carvedilol] 12.5 mg PO BID 03/31/20 [History] Psyllium [Metamucil] 1.04 mg PO BID 04/01/20 [History] Insulin Glargine,Hum.Rec.Anlog [Basaglar Kwikpen U-100] 20 unit SQ BEDTIME 04/02/20 [History] Cefdinir [Omnicef] 300 mg PO BID 3 Days #6 cap 04/04/20 [Rx] Doxycycline [Vibra-Tabs] 100 mg PO Q12H #7 tablet 04/04/20 [Rx] Patient Handouts: Nausea and Vomiting, Adult, Fall Prevention in Hospitals, Pediatric, Community-Acquired Pneumonia, Adult, Venous Thromboembolism Prevention Forms: ED Department Discharge Referrals: Dean Hinkle MD [Primary Care Provider] - - Discharge Summary/Plan Comment DC Time >30 min.: No - General Info Date of Service: 04/04/20 Subjective Update: Chari tolerated her diet and oral antibiotics last night. No fevers >48 hours, maintaining good oral intake. Did have low blood sugar this morning, treated with juice and crackers. Had 3 units of sliding scale yesterday at noon for BS of 300. Dinner sugar was 141. Some diarrhea overnight after dinner until about 2 am. Functional Status: Reports: Tolerating Diet, Ambulating, Urinating - Patient Data Vitals - Most Recent: Last Vital Signs Temp 97.7 F 04/04/20 08:00 Pulse 68 04/04/20 09:36 Resp 16 04/04/20 08:00 BP 142/68 H 04/04/20 09:36 Pulse Ox 93 L 04/04/20 08:00 Weight - Most Recent: 146 lb I&O - Last 24 hours: Intake & Output 04/03/20 04/04/20 04/04/20 22:59 06:59 14:59 Intake Total 200 Balance 200 Lab Results - Last 24 hrs: Laboratory Results - last 24 hr 04/02/20 04/02/20 04/02/20 Range/Units 11:13 17:27 20:12 WBC (4.5-12.0) X10-3/uL RBC (3.23-5.20) x10(6)uL Hgb (11.5-15.5) g/dL Hct (30.0-51.3) % MCV (80-96) fL MCH (27.7-33.6) pg MCHC (32.2-35.4) g/dL RDW (11.5-15.5) % Plt Count (125-369) X10(3)uL MPV (7.4-10.4) fL Neut % (Auto) (46-82) % Lymph % (Auto) (13-37) % Bond % (Auto) (4-12) % Eos % (Auto) (1.0-5.0) % Baso % (Auto) (0-2) % Neut # (Auto) (1.6-8.3) # Lymph # (Auto) (0.6-5.0) # Bond # (Auto) (0.0-1.3) # Eos # (Auto) (0.0-0.8) # Baso # (Auto) (0.0-0.2) # Sodium (135-145) mmol/L Potassium (3.5-5.3) mmol/L Chloride (100-110) mmol/L Carbon Dioxide (21-32) mmol/L BUN (7-18) mg/dL Creatinine (0.55-1.02) mg/dL Est Cr Clr Drug Dosing mL/min Estimated GFR (MDRD) (>60) BUN/Creatinine Ratio (9-20) Glucose (80-116) mg/dL POC Glucose 300 H 215 H 262 H (74-100) mg/dL Calcium (8.6-10.2) mg/dL 04/02/20 04/03/20 04/03/20 Range/Units 23:05 12:05 17:30 WBC (4.5-12.0) X10-3/uL RBC (3.23-5.20) x10(6)uL Hgb (11.5-15.5) g/dL Hct (30.0-51.3) % MCV (80-96) fL MCH (27.7-33.6) pg MCHC (32.2-35.4) g/dL RDW (11.5-15.5) % Plt Count (125-369) X10(3)uL MPV (7.4-10.4) fL Neut % (Auto) (46-82) % Lymph % (Auto) (13-37) % Bond % (Auto) (4-12) % Eos % (Auto) (1.0-5.0) % Baso % (Auto) (0-2) % Neut # (Auto) (1.6-8.3) # Lymph # (Auto) (0.6-5.0) # Bond # (Auto) (0.0-1.3) # Eos # (Auto) (0.0-0.8) # Baso # (Auto) (0.0-0.2) # Sodium (135-145) mmol/L Potassium (3.5-5.3) mmol/L Chloride (100-110) mmol/L Carbon Dioxide (21-32) mmol/L BUN (7-18) mg/dL Creatinine (0.55-1.02) mg/dL Est Cr Clr Drug Dosing mL/min Estimated GFR (MDRD) (>60) BUN/Creatinine Ratio (9-20) Glucose (80-116) mg/dL POC Glucose 270 H 250 H 141 H (74-100) mg/dL Calcium (8.6-10.2) mg/dL 04/04/20 04/04/20 Range/Units 06:25 06:25 WBC 8.1 (4.5-12.0) X10-3/uL RBC 3.14 L (3.23-5.20) x10(6)uL Hgb 9.5 L (11.5-15.5) g/dL Hct 29.3 L (30.0-51.3) % MCV 93.3 (80-96) fL MCH 30.3 (27.7-33.6) pg MCHC 32.5 (32.2-35.4) g/dL RDW 13.2 (11.5-15.5) % Plt Count 253 (125-369) X10(3)uL MPV 8.0 (7.4-10.4) fL Neut % (Auto) 71.2 (46-82) % Lymph % (Auto) 14.4 (13-37) % Bond % (Auto) 13.5 H (4-12) % Eos % (Auto) 1 (1.0-5.0) % Baso % (Auto) 0 (0-2) % Neut # (Auto) 5.8 (1.6-8.3) # Lymph # (Auto) 1.2 (0.6-5.0) # Bond # (Auto) 1.1 (0.0-1.3) # Eos # (Auto) 0.0 (0.0-0.8) # Baso # (Auto) 0.0 (0.0-0.2) # Sodium 143 (135-145) mmol/L Potassium 3.6 (3.5-5.3) mmol/L Chloride 109 (100-110) mmol/L Carbon Dioxide 28 (21-32) mmol/L BUN 9 (7-18) mg/dL Creatinine 0.7 (0.55-1.02) mg/dL Est Cr Clr Drug Dosing 62.74 mL/min Estimated GFR (MDRD) > 60 (>60) BUN/Creatinine Ratio 12.9 (9-20) Glucose 59 L D (80-116) mg/dL POC Glucose (74-100) mg/dL Calcium 8.8 (8.6-10.2) mg/dL FERMÍN Results - Last 24 hrs: Microbiology 03/31/20 17:10 Aerobic Blood Culture - Preliminary Blood - Venous - Lab Draw NO GROWTH AFTER 3 DAYS Anaerobic Blood Culture - Preliminary NO GROWTH AFTER 3 DAYS 03/31/20 17:00 Aerobic Blood Culture - Preliminary Blood - Venous NO GROWTH AFTER 3 DAYS Anaerobic Blood Culture - Preliminary NO GROWTH AFTER 3 DAYS Med Orders - Current: Current Medications Acetaminophen (Tylenol) 650 mg PO Q4H PRN PRN Reason: FEVER/PAIN Last Admin: 04/02/20 00:43 Dose: 650 mg Documented by: Albuterol (Proventil Neb Soln) 2.5 mg NEB Q2H PRN PRN Reason: Shortness Of Breath/wheezing Amlodipine Besylate (Norvasc) 10 mg PO BEDTIME [facility] Last Admin: 04/03/20 21:25 Dose: 10 mg Documented by: Aspirin (Halfprin) 81 mg PO DAILY [facility] Last Admin: 04/04/20 09:38 Dose: 81 mg Documented by: Atorvastatin Calcium (Lipitor) 10 mg PO BEDTIME [facility] Last Admin: 04/03/20 21:24 Dose: 10 mg Documented by: Carvedilol (Coreg) 12.5 mg PO BID [facility] Last Admin: 04/04/20 09:36 Dose: 12.5 mg Documented by: Cefdinir (Omnicef) 300 mg PO BID [facility] Last Admin: 04/04/20 09:38 Dose: 300 mg Documented by: Doxycycline Hyclate (Vibra-Tabs) 100 mg PO Q12H [facility] Last Admin: 04/04/20 09:40 Dose: 100 mg Documented by: Enoxaparin Sodium (Lovenox) 40 mg SUBCUT Q24H [facility] Last Admin: 04/03/20 18:00 Dose: 40 mg Documented by: Promethazine HCl 12.5 mg/ (Sodium Chloride) 50.5 mls @ 200 mls/hr IV Q4H PRN PRN Reason: NAUSEA Insulin Glargine (Lantus Solostar) 20 units SUBCUT BEDTIME [facility] Last Admin: 04/03/20 21:24 Dose: 20 units Documented by: Insulin Human Lispro (Humalog) 5 unit SUBCUT TID@0800,1200,1800 [facility] Last Admin: 04/04/20 09:00 Dose: 5 units Documented by: Insulin Human Lispro (Humalog) 0 unit SUBCUT TID@0800,1200,1800 [facility]; Protocol Last Admin: 04/04/20 09:02 Dose: Not Given Documented by: (Dapsone [Dapsone] (100 Mg Tab)) 0 mg PO DAILY [facility] Last Admin: 04/04/20 09:40 Dose: 50 mg Documented by: Ondansetron HCl (Zofran Odt) 4 mg PO Q4H PRN PRN Reason: nausea, able to take PO Last Admin: 04/01/20 08:37 Dose: 4 mg Documented by: Mycophenolate Dr 180mg Tab Own Med 0 each PO BID@1000,2200 [facility] Last Admin: 04/04/20 09:41 Dose: 4 each Documented by: Polyethylene Glycol (Miralax) 17 gm PO DAILY PRN PRN Reason: Constipation Potassium Chloride (Klor-Con 10) 10 meq PO TID [facility] Stop: 04/05/20 09:31 Last Admin: 04/04/20 09:38 Dose: 10 meq Documented by: Sodium Bicarbonate (Sodium Bicarbonate) 650 mg PO BID [facility] Last Admin: 04/04/20 09:39 Dose: 650 mg Documented by: Sodium Chloride (Saline Flush) 10 ml FLUSH ASDIRECTED PRN PRN Reason: saline lock flush Last Admin: 04/03/20 12:39 Dose: 10 ml Documented by: Tacrolimus (Prograf) 1 mg PO Q12H [facility] Last Admin: 04/04/20 09:38 Dose: 1 mg Documented by: Zolpidem Tartrate (Ambien) 5 mg PO BEDTIME PRN PRN Reason: Sleep Discontinued Medications Acetaminophen (Tylenol) 650 mg PO NOW ONE Stop: 03/31/20 17:10 Last Admin: 03/31/20 17:59 Dose: 650 mg Documented by: Amlodipine Besylate (Norvasc) 10 mg PO BEDTIME [facility] Last Admin: 03/31/20 22:32 Dose: 10 mg Documented by: Ceftriaxone Sodium (Rocephin) 1 gm IVPUSH Q24H [facility] Last Admin: 04/02/20 19:54 Dose: 1 gm Documented by: Sodium Chloride (Normal Saline) 500 mls @ 999 drops/min IV .BOLUS ONE Stop: 03/31/20 17:14 Last Admin: 03/31/20 17:05 Dose: 999 drops/min Documented by: Ceftriaxone Sodium 1 gm/ (Sodium Chloride) 50 mls @ 200 mls/hr IV Q24H [facility] Last Admin: 04/01/20 01:06 Dose: Not Given Documented by: Azithromycin 500 mg/ Sodium (Chloride) 250 mls @ 250 mls/hr IV Q24H [facility] Last Admin: 03/31/20 18:58 Dose: 250 mls/hr Documented by: Sodium Chloride (Normal Saline) 500 mls @ 999 mls/hr IV .BOLUS ONE Stop: 03/31/20 17:50 Last Admin: 03/31/20 18:15 Dose: 999 mls/hr Documented by: Sodium Chloride (Normal Saline) 1,000 mls @ 75 mls/hr IV ASDIRECTED [facility] Last Infusion: 04/02/20 23:40 Dose: 75 mls/hr Documented by: Doxycycline Hyclate 100 mg/ (Sodium Chloride) 100 mls @ 100 mls/hr IV Q12H [facility] Last Admin: 04/03/20 08:17 Dose: 100 mls/hr Documented by: Insulin Glargine (Lantus Solostar) 20 units SUBCUT QAM [facility] Last Admin: 04/01/20 10:46 Dose: Not Given Documented by: Metformin HCl (Glucophage) 500 mg PO DAILY@0800 [facility] Last Admin: 04/01/20 10:41 Dose: Not Given Documented by: Ondansetron HCl (Zofran) 4 mg IVPUSH ONETIME ONE Stop: 03/31/20 17:08 Last Admin: 03/31/20 17:59 Dose: 4 mg Documented by: Tacrolimus (Prograf) 1 mg PO ONETIME ONE Stop: 03/31/20 23:01 Last Admin: 03/31/20 23:13 Dose: 1 mg Documented by: - Exam General: Reports: Alert, Oriented, Cooperative, No Acute Distress Lungs: Reports: Normal Respiratory Effort, Decreased Breath Sounds (bibasilar). Denies: Crackles, Rhonchi, Wheezing Cardiovascular: Reports: Regular Rate, Regular Rhythm GI/Abdominal Exam: Normal Bowel Sounds, Soft, Non-Tender, No Distention Extremities: No Pedal Edema
== END 2020-04-04 12:30 | disposition home or self-care (01) | DRG 689 ==
LOC: FB.ED 16:51 → FB.MS 18:42
PROVIDERS: ADMIT Family Medicine; ATTEND Family Medicine
DX: N39.0 Urinary tract infection, site not specified (principal); J18.9 Pneumonia, unspecified organism; I10 Essential (primary) hypertension; E78.5 Hyperlipidemia, unspecified; K58.9 Irritable bowel syndrome, unspecified; Z94.0 Kidney transplant status; K58.0 Irritable bowel syndrome with diarrhea; E87.6 Hypokalemia; Z20.828 Contact with and (suspected) exposure to other viral communicable diseases; B96.89 Other specified bacterial agents as the cause of diseases classified elsewhere; Z79.82 Long term (current) use of aspirin; E78.00 Pure hypercholesterolemia, unspecified; N18.9 Chronic kidney disease, unspecified; I12.9 Hypertensive chronic kidney disease with stage 1 through stage 4 chronic kidney disease, or unspecified chronic kidney disease; E11.22 Type 2 diabetes mellitus with diabetic chronic kidney disease; M81.0 Age-related osteoporosis without current pathological fracture; Z79.4 Long term (current) use of insulin; Z79.899 Other long term (current) drug therapy
CPT/HCPCS: 36415; 71045; 80053; 81001; 82962; 83605; 85027; 87040 ×2; 87086; 87186; 96374; 99285; A9270; J2405; J7040 ×2; U0002; 80048; 85025; 87088; 94150; 94760; J0456; J0696; J1650; J1815; J1815-GY; J3490; J7030; J7050

== ENCOUNTER 2020-04-22 01:00 | Inpatient (IN) | payer MEDICARE, OTHER ==
[2020-04-22] MEDS ORDERED: Ondansetron 4 MG/2 ML SDV IVPUSH ONE (01:23)
--- NOTE | 2020-04-22 01:29 | EDM.PDOC ---
ED HPI GENERAL MEDICAL PROBLEM - General Stated Complaint: weakness Time Seen by Provider: 04/22/20 01:15 Source of Information: Reports: Patient History Limitations: Reports: No Limitations - History of Present Illness INITIAL COMMENTS - FREE TEXT/NARRATIVE: Patient presented to the ED because of fever/chills and dry cough which started yesterday. There is associated N/V x 4 last night and couldn't keep anything down. Denies any dyspnea, chest pain but is feeling weak and winded. She has a history of bilateral kidney transplant, there is no dysuria,urinary frequency or flank pain. - Related Data Allergies Allergy/AdvReac Type Severity Reaction Status Date / Time No Known Allergies Allergy Verified 03/31/20 17:28 Home Meds: Home Meds Insulin Aspart [Novolog Flexpen] 5 units SUBCUT TIDM 06/22/14 [History] Sodium Bicarbonate 650 mg PO BID 07/27/17 [History] amLODIPine [Norvasc] 10 mg PO BEDTIME 07/27/17 [History] Acetaminophen 650 mg PO Q4HR PRN 03/31/20 [History] Aspirin [Aspir 81] 81 mg PO DAILY 03/31/20 [History] Cholecalciferol (Vitamin D3) [Vitamin D3] 2,000 unit PO DAILY 03/31/20 [History] Dapsone 50 mg PO DAILY 03/31/20 [History] Mycophenolate Sodium [Mycophenolic Acid] 720 mg PO BID 03/31/20 [History] Tacrolimus [Prograf] 1 mg PO BID 03/31/20 [History] atorvaSTATin [Lipitor] 10 mg PO BEDTIME 03/31/20 [History] carvediloL [Carvedilol] 12.5 mg PO BID 03/31/20 [History] Psyllium [Metamucil] 1.04 mg PO BID 04/01/20 [History] Insulin Glargine,Hum.Rec.Anlog [Basaglar Kwikpen U-100] 20 unit SQ BEDTIME 0 04/02/20 [History] Cefdinir [Omnicef] 300 mg PO BID 3 Days #6 cap 04/04/20 [Rx] Doxycycline [Vibra-Tabs] 100 mg PO Q12H #7 tablet 04/04/20 [Rx] Past Medical History HEENT History: Reports: Other (See Below) 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 Cardiovascular History: Reports: High Cholesterol, Hypertension, Syncope, Other (See Below) Other Cardiovascular History: hyperlipidemia Gastrointestinal History: Reports: Irritable Bowel Syndrome Genitourinary History: Reports: Acute Renal Failure, Chronic Renal Insuffiency FLEET COORDINATOR History: Reports: Other FLEET COORDINATOR History: Musculoskeletal History: Reports: Osteoporosis Endocrine/Metabolic History: Reports: Diabetes, Type II Hematologic History: Reports: Anemia Immunologic History: Reports: Solid Organ Transplant Other Immunologic History: L kidney transplant - Infectious Disease History Infectious Disease History: Reports: C-Difficile, Mumps - Past Surgical History HEENT Surgical History: Reports: Other (See Below) Other HEENT Surgeries/Procedures: vitrectomy right eye Cardiovascular Surgical History: Reports: None GI Surgical History: Reports: Colonoscopy Female Surgical History: Reports: Other (See Below) Other Female Surgeries/Procedures: kidney transplant, dialysis fistula creation, Social & Family History - Family History Family Medical History: Noncontributory - Caffeine Use Caffeine Use: Reports: None ED ROS GENERAL - Review of Systems Review Of Systems: See Below Constitutional: Reports: Fever, Chills HEENT: Reports: No Symptoms Respiratory: Reports: Cough. Denies: Shortness of Breath, Sputum Cardiovascular: Reports: No Symptoms Endocrine: Reports: No Symptoms GI/Abdominal: Reports: No Symptoms : Reports: No Symptoms Musculoskeletal: Reports: No Symptoms Skin: Reports: No Symptoms ED EXAM, GENERAL - Physical Exam Exam: See Below Exam Limited By: No Limitations General Appearance: Alert, No Apparent Distress Eye Exam: Bilateral Eye: PERRL Ears: Normal External Exam, Normal Canal Nose: Normal Inspection, Normal Mucosa, No Blood Throat/Mouth: Normal Inspection, Normal Lips, Normal Teeth Head: Atraumatic, Normocephalic Neck: Normal Inspection, Supple, Non-Tender Respiratory/Chest: No Respiratory Distress, Lungs Clear, Normal Breath Sounds Cardiovascular: Normal Peripheral Pulses, Regular Rate, Rhythm, No Edema, No JVD, No Murmur GI/Abdominal: Normal Bowel Sounds, Soft, Non-Tender Back Exam: Normal Inspection, Full Range of Motion Extremities: Normal Inspection, Normal Range of Motion, Non-Tender Neurological: Alert, Oriented, CN II-XII Intact, Normal Cognition Psychiatric: Normal Affect, Normal Mood Skin Exam: Warm Course - Vital Signs Text/Narrative:: Labs reviewed and discussed with patient Zofran 4 mg IV x1 NS 1 L in 2 hours Rocephin 1gm IV Last Recorded V/S: Last Vital Signs Temp 37.9 C 04/22/20 01:00 Pulse 68 04/22/20 01:00 Resp 24 H 04/22/20 01:00 BP 101/40 L 04/22/20 01:00 Pulse Ox 94 L 04/22/20 01:00 - Orders/Labs/Meds Orders: Active Orders 24 hr Category Date Time Status Chest 1V Frontal [CR] Stat Exams 04/22/20 01:14 Taken CULTURE BLOOD [BC] Urgent Lab 04/22/20 01:20 Received CULTURE BLOOD [BC] Urgent Lab 04/22/20 01:25 Received CULTURE URINE [RM] Stat Lab 04/22/20 02:00 Ordered LACTIC ACID [CHEM] Stat Lab 04/22/20 04:25 Ordered Sodium Chloride 0.9% [Normal Saline] 1,000 ml Med 04/22/20 01:30 Active IV ASDIRECTED Sodium Chloride 0.9% [Saline Flush] Med 04/22/20 01:14 Active 10 ml FLUSH ASDIRECTED PRN Blood Culture x2 Reflex Set [OM.PC] Urgent Oth 04/22/20 01:14 Ordered Saline Lock Insert [OM.PC] Routine Oth 04/22/20 01:14 Ordered Medication Orders Sodium Chloride (Normal Saline) 1,000 mls @ 500 mls/hr IV ASDIRECTED BROOKE Sodium Chloride (Saline Flush) 10 ml FLUSH ASDIRECTED PRN PRN Reason: Keep Vein Open Labs: Laboratory Tests 04/22/20 04/22/20 04/22/20 Range/Units 01:25 01:25 01:25 WBC 14.0 H (4.5-12.0) X10-3/uL RBC 3.58 (3.23-5.20) x10(6)uL Hgb 11.3 L (11.5-15.5) g/dL Hct 34.4 (30.0-51.3) % MCV 96.1 H (80-96) fL MCH 31.5 (27.7-33.6) pg MCHC 32.7 (32.2-35.4) g/dL RDW 15.0 (11.5-15.5) % Plt Count 258 (125-369) X10(3)uL MPV 8.2 (7.4-10.4) fL Neut % (Auto) 77.1 (46-82) % Lymph % (Auto) 10.6 L (13-37) % Bullock % (Auto) 11.4 (4-12) % Eos % (Auto) 0 L (1.0-5.0) % Baso % (Auto) 1 (0-2) % Neut # (Auto) 10.8 H (1.6-8.3) # Lymph # (Auto) 1.5 (0.6-5.0) # Bullock # (Auto) 1.6 H (0.0-1.3) # Eos # (Auto) 0.0 (0.0-0.8) # Baso # (Auto) 0.1 (0.0-0.2) # Sodium 139 (135-145) mmol/L Potassium 3.6 (3.5-5.3) mmol/L Chloride 106 (100-110) mmol/L Carbon Dioxide 23 (21-32) mmol/L BUN 16 (7-18) mg/dL Creatinine 1.1 H (0.55-1.02) mg/dL Est Cr Clr Drug Dosing TNP Estimated GFR (MDRD) 49 L (>60) BUN/Creatinine Ratio 14.5 (9-20) Glucose 185 H D (80-116) mg/dL Lactic Acid 2.4 H* (0.4-2.0) mmol/L Calcium 6.9 L (8.6-10.2) mg/dL Total Bilirubin 0.6 (0.1-1.3) mg/dL AST 26 H (5-25) IU/L ALT 48 H D (12-36) U/L Alkaline Phosphatase 79 (56-112) IU/L Total Protein 5.5 L (6.0-8.0) g/dL Albumin 2.3 L (3.2-4.6) g/dL Globulin 3.2 g/dL Albumin/Globulin Ratio 0.7 Urine Color (YELLOW) Urine Appearance (CLEAR) Urine pH (5.0-6.5) Ur Specific Mcgrady (1.010-1.025) Urine Protein (NEGATIVE) mg/dL Urine Glucose (UA) (NORMAL) mg/dL Urine Ketones (NEGATIVE) mg/dL Urine Occult Blood (NEGATIVE) Urine Nitrite (NEGATIVE) Urine Bilirubin (NEGATIVE) Urine Urobilinogen (NEGATIVE) mg/dL Ur Leukocyte Esterase (NEGATIVE) Urine RBC (0-5) Urine WBC (0-5) Ur Squamous Epith Cells (NS,R,O) Urine Bacteria (NS) Urine Mucus (NS) 04/22/20 Range/Units 01:45 WBC (4.5-12.0) X10-3/uL RBC (3.23-5.20) x10(6)uL Hgb (11.5-15.5) g/dL Hct (30.0-51.3) % MCV (80-96) fL MCH (27.7-33.6) pg MCHC (32.2-35.4) g/dL RDW (11.5-15.5) % Plt Count (125-369) X10(3)uL MPV (7.4-10.4) fL Neut % (Auto) (46-82) % Lymph % (Auto) (13-37) % Bullock % (Auto) (4-12) % Eos % (Auto) (1.0-5.0) % Baso % (Auto) (0-2) % Neut # (Auto) (1.6-8.3) # Lymph # (Auto) (0.6-5.0) # Bullock # (Auto) (0.0-1.3) # Eos # (Auto) (0.0-0.8) # Baso # (Auto) (0.0-0.2) # Sodium (135-145) mmol/L Potassium (3.5-5.3) mmol/L Chloride (100-110) mmol/L Carbon Dioxide (21-32) mmol/L BUN (7-18) mg/dL Creatinine (0.55-1.02) mg/dL Est Cr Clr Drug Dosing Estimated GFR (MDRD) (>60) BUN/Creatinine Ratio (9-20) Glucose (80-116) mg/dL Lactic Acid (0.4-2.0) mmol/L Calcium (8.6-10.2) mg/dL Total Bilirubin (0.1-1.3) mg/dL AST (5-25) IU/L ALT (12-36) U/L Alkaline Phosphatase (56-112) IU/L Total Protein (6.0-8.0) g/dL Albumin (3.2-4.6) g/dL Globulin g/dL Albumin/Globulin Ratio Urine Color Yellow (YELLOW) Urine Appearance Cloudy (CLEAR) Urine pH 5.0 (5.0-6.5) Ur Specific Mcgrady 1.020 (1.010-1.025) Urine Protein 30 H (NEGATIVE) mg/dL Urine Glucose (UA) Normal (NORMAL) mg/dL Urine Ketones Negative (NEGATIVE) mg/dL Urine Occult Blood Moderate H (NEGATIVE) Urine Nitrite Negative (NEGATIVE) Urine Bilirubin Negative (NEGATIVE) Urine Urobilinogen Normal (NEGATIVE) mg/dL Ur Leukocyte Esterase Large H (NEGATIVE) Urine RBC 5-10 H (0-5) Urine WBC 30-40 H (0-5) Ur Squamous Epith Cells Few H (NS,R,O) Urine Bacteria Moderate H (NS) Urine Mucus Few H (NS) Meds: Medications Generic Name Dose Route Start Last Admin Trade Name Freq PRN Reason Stop Dose Admin Sodium Chloride 1,000 mls @ 500 mls/hr 04/22/20 01:30 Normal Saline IV ASDIRECTED BROOKE Sodium Chloride 10 ml 04/22/20 01:14 Saline Flush FLUSH ASDIRECTED PRN Keep Vein Open Discontinued Medications Generic Name Dose Route Start Last Admin Trade Name Freq PRN Reason Stop Dose Admin Ondansetron HCl 4 mg 04/22/20 01:23 Zofran IVPUSH 04/22/20 01:24 ONETIME ONE Departure - Departure Time of Disposition: 02:05 Disposition: Admitted As Inpatient 66 Condition: Good Clinical Impression: Dehydration, UTI (urinary tract infection), URI (upper respiratory infection) - Discharge Information Referrals: Dean Hinkle MD [Primary Care Provider] - Sepsis Event Note (ED) - Focused Exam Vital Signs: Vital Signs Temp Pulse Resp BP Pulse Ox 04/22/20 01:00 37.9 C 68 24 H 101/40 L 94 L - My Orders Last 24 Hours: My Active Orders 04/22/20 01:14 Chest 1V Frontal [CR] Stat Sodium Chloride 0.9% [Saline Flush] 10 ml FLUSH ASDIRECTED PRN Blood Culture x2 Reflex Set [OM.PC] Urgent Saline Lock Insert [OM.PC] Routine 04/22/20 01:20 CULTURE BLOOD [BC] Urgent 04/22/20 01:25 CULTURE BLOOD [BC] Urgent 04/22/20 01:30 Sodium Chloride 0.9% [Normal Saline] 1,000 ml IV ASDIRECTED 04/22/20 02:00 CULTURE URINE [RM] Stat 04/22/20 04:25 LACTIC ACID [CHEM] Stat - Assessment/Plan Last 24 Hours: My Active Orders 04/22/20 01:14 Chest 1V Frontal [CR] Stat Sodium Chloride 0.9% [Saline Flush] 10 ml FLUSH ASDIRECTED PRN Blood Culture x2 Reflex Set [OM.PC] Urgent Saline Lock Insert [OM.PC] Routine 04/22/20 01:20 CULTURE BLOOD [BC] Urgent 04/22/20 01:25 CULTURE BLOOD [BC] Urgent 04/22/20 01:30 Sodium Chloride 0.9% [Normal Saline] 1,000 ml IV ASDIRECTED 04/22/20 02:00 CULTURE URINE [RM] Stat 04/22/20 04:25 LACTIC ACID [CHEM] Stat
[2020-04-22] MEDS ORDERED: Sodium Chloride 0.9% 1,000 ML IV SCH ×2 (01:30→02:15)
[2020-04-22] MEDS ORDERED: Acetaminophen 325 MG Tab PO PRN (02:10)
[2020-04-22] MEDS ORDERED: Ondansetron 4 MG/2 ML SDV IVPUSH PRN (02:14)
[2020-04-22] MEDS: cefTRIAXone 1 GM Vial IVPUSH SCH (02:55)
[2020-04-22] MEDS ORDERED: Sodium Chloride 0.9% 1,000 ML IV ONE (02:59)
[2020-04-22] MEDS: Sodium Bicarbonate 650 MG Tab PO SCH ×2 (08:23→21:14)
[2020-04-22] MEDS: Aspirin 81 MG Tab.EC PO SCH (08:23)
[2020-04-22] MEDS: DAPSONE 100 MG PO SCH (08:24)
[2020-04-22] MEDS: Tacrolimus 1 MG Cap PO SCH ×2 (08:24→21:19)
[2020-04-22] MEDS: Carvedilol 12.5 MG Tab PO SCH ×2 (08:24→21:20)
[2020-04-22] MEDS: Psyllium 0.52 GM Cap PO SCH ×2 (08:24→21:16)
[2020-04-22] MEDS: Cholecalciferol (Vitamin D3) 25 MCG Tab PO SCH (08:24)
[2020-04-22] MEDS: MYCOPHENOLATE SODIUM 180 MG PO SCH ×2 (08:25→21:17)
[2020-04-22] MEDS ORDERED: Insulin Lispro 100 Unit/ML 3 ML KwikPen SUBCUT ONE (08:31)
[2020-04-22] MEDS: Insulin Lispro 100 Unit/ML 3 ML KwikPen SUBCUT SCH ×4 (08:37→18:27)
--- NOTE | 2020-04-22 09:57 | CR ---
INDICATION: Cough, fever. CHEST, 1 VIEW: Portable AP upright view of the chest was obtained 04/22/20 and compared with 04/08/09 and 03/31/20. The heart is enlarged with left ventricular predominance. The aorta is calcified in the arch area and somewhat tortuous. The lungs appear to be somewhat hyperaerated. The pulmonary markings are similar to the previous study without a definite active infiltrate or effusion. However, bronchial wall cuffing is present in the [id number] lung isidro, [id number] in the mid-lung isidro and moderate in the lower lung isidro, which was present previously, and may represent pulmonary fibrosis, and/or active peribronchial disease, and should be correlated clinically. MTDD
--- NOTE | 2020-04-22 11:14 | HP ---
ADMISSION DATE: 04/22/2020 CHIEF COMPLAINT: Weakness, fever, chills, urinary infection. HISTORY OF PRESENT ILLNESS: Mrs. Rios is a 69-year-old woman from [place] with a history of renal transplant, type 2 diabetes, hypertension, and hyperlipidemia. The patient underwent her renal transplant at [facility] in [place] on June 10, 2019. She has had her followup via phone video visit and has had in-person visits and has had lab studies drawn at [facility] in [place]. According to the patient, she was in her usual state of health until Wednesday, 3 days ago. She felt mildly unwell by Wednesday afternoon with urinary pressure; no burning, fever, chills. By Wednesday, she developed a fever up to 101 to 102. She had nausea and vomiting. She began to have slight cough and chills. Wednesday, yesterday, she felt weaker, and overnight she came in now after being brought to the emergency room where she was evaluated by Dr. Cagle. Chest x- ray was normal. Laboratory suggested urinary tract infection. She had a white count of 14,000 and hemoglobin of 11.3. Electrolytes normal. BUN 16, creatinine 1.1. Initial lactic acid 2.4. She was started on IV antibiotic, admitted to the floor, given IV fluid and this morning when examined she feels improved. Lactic acid level after 4 hours was down to 0.9. The patient states she has been quite stable from a renal transplant standpoint. They have decreased her Prograf dose down to 2 tablets per day now based on laboratory testing as an outpatient. PAST MEDICAL HISTORY: Renal transplant in 2019 as mentioned. She has also had cataract surgery. She was hospitalized a month ago for pneumonia for 4 days. She injured her right knee last year while at [facility] that still intermittently bothers her. She is 2, para 2 with normal delivery. She does have a history of transfusions in the past that may be related to her renal- based anemia. She denies any specific blood loss. She has never had a history of jaundice or hepatitis. MEDICATIONS: 1. Prograf 0.5 mg b.i.d. 2. Sodium bicarb 650 mg b.i.d. 3. Metamucil 2 capsules b.i.d. 4. Mycophenolate 720 mg b.i.d. 5. Basaglar 16 units at bedtime. 6. NovoLog sliding scale p.r.n. 7. Dapsone 100 mg 1/2 tablet daily. 8. Vitamin D 2000 units daily. 9. Carvedilol 12.5 mg b.i.d. 10.Atorvastatin 10 mg at bedtime. 11.Aspirin 81 mg daily. 12.Amlodipine 10 mg at bedtime. 13.Tylenol p.r.n. ALLERGIES: None known. HABITS: Nonsmoker and nondrinker. FAMILY AND SOCIAL HISTORY: The patient has been for 49 years. She is retired from working at [employer]. Her is retired from the [employer] service and now drives bus. She has 2 daughters, age 35 and 45, one in [place] and one in [place]. REVIEW OF SYSTEMS: GENERAL: No seizure, syncope, or recent significant weight change. SKIN: Negative for rash. HEENT: No recent change in hearing or vision. She has slight scratchy throat and slight cough since this onset. CHEST: No chest pain or palpitations. ABDOMEN: No abdominal pain. No diarrhea, hematochezia, or melena. MUSCULOSKELETAL: No swelling, skin rash, joint inflammation. PHYSICAL EXAMINATION: GENERAL: She is alert, comfortable, and a good historian. VITAL SIGNS: Blood pressure 138/55, pulse 60 and regular, respirations 16, O2 saturation 91% on room air, temperature 98.5, weight 146 pounds. Temperature was 100.3 on admission. SKIN: Anicteric. Warm and dry without rash. HEENT: Pupils are equal and reactive. Mouth is dry. LUNGS: Clear to the bases. HEART: Regular without murmur or gallop. ABDOMEN: Normal bowel sounds. Soft. She has a transplanted kidney in the suprapubic area. EXTREMITIES: No edema. LABORATORY DATA: White count 14,000, hemoglobin 11.3. Electrolytes normal. BUN 16, creatinine 1.1. Lactic acid this morning 0.9. AST 26, ALT 48. Urinalysis shows 5 to 10 red cells, 30 to 40 white cells. ASSESSMENT: A 69-year-old woman with febrile illness with urinary pressure, pyuria consistent with urinary tract infection, but also some mild respiratory symptoms. PLAN: COVID test will be done on her. She is receiving IV Rocephin. We will continue this for now as well as her IV fluid. Anticipate brief hospital stay followed by return to her home. /[id number] PARVIZ/OVIDIO
[2020-04-22] MEDS: Sodium Chloride 0.9% 10 ML Syringe FLUSH PRN (14:15)
[2020-04-22] MEDS ORDERED: amLODIPine 5 MG Tab PO SCH (21:00)
[2020-04-22] MEDS ORDERED: Insulin Glargine,Human Rec. Analog 100 Units/ML 3 ML Pen SUBCUT SCH (21:00)
[2020-04-22] MEDS: atorvaSTATin 10 MG Tab PO SCH (21:15)
[2020-04-22] MEDS ORDERED: Insulin Glargine,Human Rec. Analog 100 Units/ML 3 ML Pen SUBCUT ONE (21:29)
[2020-04-23] MEDS: cefTRIAXone 1 GM Vial IVPUSH SCH (02:24)
[2020-04-23] MEDS: Sodium Chloride 0.9% 10 ML Syringe FLUSH PRN (02:27)
[2020-04-23] MEDS: MYCOPHENOLATE SODIUM 180 MG PO SCH ×2 (08:36→20:49)
[2020-04-23] MEDS: DAPSONE 100 MG PO SCH (08:36)
[2020-04-23] MEDS: Aspirin 81 MG Tab.EC PO SCH (08:37)
[2020-04-23] MEDS: Cholecalciferol (Vitamin D3) 25 MCG Tab PO SCH (08:37)
[2020-04-23] MEDS: Tacrolimus 1 MG Cap PO SCH ×2 (08:37→20:48)
[2020-04-23] MEDS: Sodium Bicarbonate 650 MG Tab PO SCH ×2 (08:37→20:48)
[2020-04-23] MEDS: Carvedilol 12.5 MG Tab PO SCH ×2 (08:38→20:48)
[2020-04-23] MEDS: Psyllium 0.52 GM Cap PO SCH ×2 (08:39→20:48)
--- NOTE | 2020-04-23 09:35 | PN ---
DATE SEEN: 04/23/2020 HISTORY: Chari is a 69-year-old woman, who is status post kidney transplant on immunosuppression, who came in through the emergency room because of weakness, fever, chills, and she was admitted with urinary tract infection. She was started on IV Rocephin. Urine culture was sent and has come back, so far, Gram- negative rods. She has felt weak overnight, but states she is somewhat better this morning. She was able to eat and drink satisfactorily yesterday evening. PHYSICAL EXAMINATION: VITAL SIGNS: Blood pressure 117/48, pulse 70 and regular, respirations 18, O2 saturation 91% on room air, temp 100.4 during the night. SKIN: No rash. HEENT: Throat is clear. LUNGS: Clear in the upper lung isidro. She has occasional rhonchi at the bases. No focal consolidation to exam. HEART: Regular with no murmur or gallop heard. ABDOMEN: Soft, nontender. EXTREMITIES: No edema. LABORATORY DATA: White count 14,000 on admission yesterday, hemoglobin 11.3, MCV 96. Electrolytes normal. Admission lactic acid 2.4 and 3 hours later down to 0.9. Urinalysis showed 30 to 40 white cells, 5 to 10 red cells. Today, COVID-19 virus negative. Today's labs are pending. ASSESSMENT: 1. Urinary tract infection with continued febrile state. 2. Renal transplant, on Prograf, mycophenolate, and dapsone. 3. Hypertension. 4. Hyperlipidemia. PLAN: At this time we will continue her IV Rocephin, await further identification of the urinary organism. Continue other medications. Anticipate discharge to home within 24 to 48 hours, if she continues to improve. /[id number] PARVIZ/OVIDIO
[2020-04-23] MEDS: atorvaSTATin 10 MG Tab PO SCH (20:48)
[2020-04-23] MEDS ORDERED: amLODIPine 10 MG Tab PO SCH (21:00)
[2020-04-23] MEDS ORDERED: Insulin Glargine,Human Rec. Analog 100 Units/ML 3 ML Pen SUBCUT SCH (21:00)
[2020-04-24] MEDS: cefTRIAXone 1 GM Vial IVPUSH SCH (02:22)
[2020-04-24] MEDS: Sodium Chloride 0.9% 10 ML Syringe FLUSH PRN (02:22)
[2020-04-24] MEDS ORDERED: Sulfamethoxazole/Trimethoprim 400-80 MG Tab PO SCH (09:00)
[2020-04-24] MEDS: Carvedilol 12.5 MG Tab PO SCH (09:02)
[2020-04-24] MEDS: DAPSONE 100 MG PO SCH (09:03)
[2020-04-24] MEDS: Aspirin 81 MG Tab.EC PO SCH (09:04)
[2020-04-24] MEDS: Psyllium 0.52 GM Cap PO SCH (09:06)
[2020-04-24] MEDS: Tacrolimus 1 MG Cap PO SCH (09:07)
[2020-04-24] MEDS: MYCOPHENOLATE SODIUM 180 MG PO SCH (09:07)
[2020-04-24] MEDS: Sodium Bicarbonate 650 MG Tab PO SCH (09:09)
[2020-04-24] MEDS: Cholecalciferol (Vitamin D3) 25 MCG Tab PO SCH (09:09)
[2020-04-24 09:10] VITALS: PULSE 62
[2020-04-24 11:58] VITALS: BP 130/52
--- NOTE | 2020-04-24 15:21 | DISCH ---
DISCHARGE DATE: 04/24/2020 HISTORY: Mrs. Rios is a 69-year-old woman from [place], [place] with a history of renal transplant, type 2 diabetes, hypertension, and immunosuppression because of her transplant. The patient was admitted through the ER on 04/22/2020 because of nausea, vomiting, weakness, mild cough, and urinalysis consistent with urinary tract infection. ADMISSION LABORATORY: Showed her white count to be 14,000, hemoglobin 11.3, electrolytes normal. BUN 16, creatinine 1.1. Lactic acid 2.4, and 4 hours later, lactic acid 0.9. Urinalysis showed moderate blood, 5 to 10 red cells, 30 to 40 white cells, negative nitrite. COVID-19 test was negative. The patient was treated with IV Rocephin. Urine culture returned Gram-negative rods. ID still pending. HOSPITAL COURSE: The patient rapidly felt better, and by 04/24/2020, she was eating normally, up walking, and feels like she was back to her baseline. She is discharged home in good condition to continue medications as follows: 1. Bactrim 1 tablet b.i.d. x5 days. 2. NovoLog 5 to 6 units t.i.d. p.r.n. hyperglycemia and mealtime. 3. Tacrolimus 0.5 mg 2 capsules b.i.d. 4. Sodium bicarb 650 mg b.i.d. 5. Psyllium 2 capsules b.i.d. 6. Mycophenolic acid 720 mg b.i.d. 7. Basaglar 16 units at bedtime. 8. Dapsone 50 mg daily. 9. Vitamin D3 2000 units daily. 10.Carvedilol 12.5 mg b.i.d. 11.Atorvastatin 10 mg at bedtime. 12.Aspirin 81 mg daily. 13.Amlodipine 10 mg at bedtime. 14.Tylenol p.r.n. She is asked to have appointment with her doctor in 1 week with a followup urinalysis and call us should there be questions or problems prior to that time. /[id number] PARVIZ/OVIDIO
== END 2020-04-24 11:15 | disposition home or self-care (01) | DRG 690 ==
LOC: FB.ED 01:00 → FB.MS 02:12
PROVIDERS: ADMIT Emergency Medicine; ATTEND Family Medicine
DX: N39.0 Urinary tract infection, site not specified (principal); E86.0 Dehydration; J06.9 Acute upper respiratory infection, unspecified; Z94.0 Kidney transplant status; R53.1 Weakness; D89.9 Disorder involving the immune mechanism, unspecified; Z20.828 Contact with and (suspected) exposure to other viral communicable diseases; E78.00 Pure hypercholesterolemia, unspecified; K58.9 Irritable bowel syndrome, unspecified; E78.5 Hyperlipidemia, unspecified; I12.9 Hypertensive chronic kidney disease with stage 1 through stage 4 chronic kidney disease, or unspecified chronic kidney disease; N18.9 Chronic kidney disease, unspecified; M81.0 Age-related osteoporosis without current pathological fracture; E11.22 Type 2 diabetes mellitus with diabetic chronic kidney disease; D64.9 Anemia, unspecified; Z79.899 Other long term (current) drug therapy; Z79.82 Long term (current) use of aspirin; Z79.4 Long term (current) use of insulin
CPT/HCPCS: 36415; 71045; 80053; 81001; 83605; 85025; 87040 ×2; 87086; 87088; 87186; 96374; 99285; J2405; J7030; 82962; 99221; 99231; 99238; 99284; A9270-GY; J0696; J1815; J1815-GY; U0002

== ENCOUNTER 2020-09-21 00:07 | Emergency (ER) | payer MEDICARE, OTHER ==
[2020-09-21 01:08] VITALS: BP 152/70; PULSE 58
[2020-09-21] MEDS ORDERED: Cefdinir 300 MG Cap PO ONE (01:11)
--- NOTE | 2020-09-21 01:16 | EDM.PDOC ---
ED HPI GENERAL MEDICAL PROBLEM - General Chief Complaint: Genitourinary Problem Stated Complaint: UTI Time Seen by Provider: 09/21/20 00:30 Source of Information: Reports: Patient History Limitations: Reports: No Limitations - History of Present Illness INITIAL COMMENTS - FREE TEXT/NARRATIVE: has dysuria and increased frequency Onset: Today Onset Date: 09/21/20 Location: Reports: Abdomen Quality: Reports: Ache, Dull Severity: Mild Improves with: Reports: None Worsens with: Reports: None Associated Symptoms: Reports: No Other Symptoms - Related Data Allergies Allergy/AdvReac Type Severity Reaction Status Date / Time No Known Allergies Allergy Verified 09/21/20 00:52 Home Meds: Home Meds Insulin Aspart [Novolog Flexpen] 5 - 6 units SUBCUT TIDM 06/22/14 [History] Sodium Bicarbonate 650 mg PO BID 07/27/17 [History] amLODIPine [Norvasc] 10 mg PO BEDTIME 07/27/17 [History] Acetaminophen 650 mg PO Q4HR PRN 03/31/20 [History] Aspirin [Aspir 81] 81 mg PO DAILY 03/31/20 [History] Cholecalciferol (Vitamin D3) [Vitamin D3] 2,000 unit PO DAILY 03/31/20 [History] Dapsone 50 mg PO DAILY 03/31/20 [History] Mycophenolate Sodium [Mycophenolic Acid] 720 mg PO BID 03/31/20 [History] Tacrolimus [Prograf] 1 mg PO BID 03/31/20 [History] atorvaSTATin [Lipitor] 10 mg PO BEDTIME 03/31/20 [History] carvediloL [Carvedilol] 12.5 mg PO BID 03/31/20 [History] Psyllium [Metamucil] 2 cap PO BID 04/01/20 [History] Insulin Glargine,Hum.Rec.Anlog [Basaglar Kwikpen U-100] 16 unit SQ BEDTIME 04/02/20 [History] Sulfamethoxazole/Trimethoprim [Septra] 1 tab PO BID #10 tablet 04/24/20 [Rx] Cefdinir 300 mg PO BID #20 capsule 09/21/20 [Rx] Past Medical History HEENT History: Reports: Other (See Below) Other HEENT History: Chorioretinal scar of both eyes. Wears reading glasses. Cardiovascular History: Reports: High Cholesterol, Hypertension, Syncope, Other (See Below) Other Cardiovascular History: Hyperlipidemia. 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 - Infectious Disease History Infectious Disease History: Reports: C-Difficile, Mumps, Other (See Below) Other Infectious Disease History: Patient not sure if she had Measles or Rubel la. - Past Surgical History HEENT Surgical History: Reports: Other (See Below) Other HEENT Surgeries/Procedures: Vitrectomy right eye. Cardiovascular Surgical History: Reports: None GI Surgical History: Reports: Colonoscopy Female Surgical History: Reports: Other (See Below) Other Female Surgeries/Procedures: Kidney transplant X2. Dialysis fistula creation to left AC area. Neurological Surgical History: Reports: None Social & Family History - Family History Family Medical History: No Pertinent Family History - Caffeine Use Caffeine Use: Reports: None ED ROS GENERAL - Review of Systems Review Of Systems: Comprehensive ROS is negative, except as noted in HPI. ED EXAM, RENAL/ - Physical Exam Exam: See Below Exam Limited By: No Limitations General Appearance: Alert, WD/WN, No Apparent Distress Eye Exam: Bilateral Eye: EOMI Ears: Normal External Exam Nose: Normal Inspection Throat/Mouth: Normal Oropharynx Head: Atraumatic, Normocephalic Neck: Supple, Non-Tender Respiratory/Chest: No Respiratory Distress, Lungs Clear Cardiovascular: Normal Peripheral Pulses, Regular Rate, Rhythm GI/Abdominal: Soft, Non-Tender Back Exam: Normal Inspection, Full Range of Motion Extremities: No Pedal Edema Neurological: Alert, Oriented, CN II-XII Intact Psychiatric: Normal Affect, Normal Mood Skin Exam: Warm, Dry, Intact Course - Vital Signs Last Recorded V/S: Last Vital Signs Temp 36.5 C 09/21/20 00:20 Pulse 58 L 09/21/20 00:20 Resp 18 09/21/20 00:20 BP 152/70 H 09/21/20 00:20 Pulse Ox 100 09/21/20 00:20 - Orders/Labs/Meds Orders: Active Orders 24 hr Category Date Time Status CULTURE URINE [RM] Stat Lab 09/21/20 00:40 Received Labs: Laboratory Tests 09/21/20 Range/Units 00:40 Urine Color Yellow (YELLOW) Urine Appearance Clear (CLEAR) Urine pH 6.0 (5.0-6.5) Ur Specific [place] 1.015 (1.010-1.025) Urine Protein Negative (NEGATIVE) mg/dL Urine Glucose (UA) Normal (NORMAL) mg/dL Urine Ketones Negative (NEGATIVE) mg/dL Urine Occult Blood Negative (NEGATIVE) Urine Nitrite Negative (NEGATIVE) Urine Bilirubin Negative (NEGATIVE) Urine Urobilinogen Normal (NEGATIVE) mg/dL Ur Leukocyte Esterase Moderate H (NEGATIVE) Urine RBC 0-5 (0-5) Urine WBC 5-10 H (0-5) Ur Squamous Epith Cells Few H (NS,R,O) Urine Bacteria Few H (NS) Meds: Medications Discontinued Medications Generic Name Dose Route Start Last Admin Trade Name Freq PRN Reason Stop Dose Admin Cefdinir 600 mg 09/21/20 01:11 09/21/20 01:21 Omnicef PO 09/21/20 01:12 600 mg ONETIME ONE Administration Departure - Departure Time of Disposition: :30 Disposition: Home, Self-Care 01 Condition: Good Clinical Impression: UTI (urinary tract infection) - Discharge Information *PRESCRIPTION DRUG MONITORING PROGRAM REVIEWED*: Not Applicable *COPY OF PRESCRIPTION DRUG MONITORING REPORT IN PATIENT VERA: Not Applicable Prescriptions: Cefdinir 300 mg PO BID #20 capsule Instructions: Urinary Tract Infection, Adult, Xieo-of-Flet Referrals: Dean Hinkle MD [Primary Care Provider] - Forms: ED Department Discharge Additional Instructions: 1) Increase fluid intake 2) take cranbery juice/ tabs . 3) Follow up with your doctor for repeat UA in 10 days Sepsis Event Note (ED) - Evaluation Sepsis Screening Result: No Definite Risk - Focused Exam Vital Signs: Vital Signs Temp Pulse Resp BP Pulse Ox 09/21/20 00:20 36.5 C 58 L 18 152/70 H 100 - My Orders Last 24 Hours: My Active Orders 09/21/20 00:40 CULTURE URINE [RM] Stat - Assessment/Plan Last 24 Hours: My Active Orders 09/21/20 00:40 CULTURE URINE [RM] Stat
== END 2020-09-21 01:40 | disposition home or self-care (01) ==
LOC: FB.ED 00:07
DX: N39.0 Urinary tract infection, site not specified (principal); E78.00 Pure hypercholesterolemia, unspecified; I12.9 Hypertensive chronic kidney disease with stage 1 through stage 4 chronic kidney disease, or unspecified chronic kidney disease; E11.22 Type 2 diabetes mellitus with diabetic chronic kidney disease; N18.9 Chronic kidney disease, unspecified; Z79.4 Long term (current) use of insulin; Z79.82 Long term (current) use of aspirin; Z79.899 Other long term (current) drug therapy
CPT/HCPCS: 81001; 87086; 87088; 87186; 99283; A9270

== ENCOUNTER 2021-01-22 20:47 | Emergency (ER) | payer MEDICARE, OTHER ==
[2021-01-22 20:59] VITALS: BP 146/48; PULSE 70
--- NOTE | 2021-01-22 21:56 | EDM.PDOC ---
ED HPI GENERAL MEDICAL PROBLEM - General Chief Complaint: General Stated Complaint: WANT TO CHECK POTASSIUM Time Seen by Provider: 01/22/21 21:35 Source of Information: Reports: Patient History Limitations: Reports: No Limitations - History of Present Illness INITIAL COMMENTS - FREE TEXT/NARRATIVE: Patient presented to the ED because of an elevated potassium. She is otherwise a symptomatic and just want it to be checked again because she has a history of bilateral kidney transplant. - Related Data Allergies Allergy/AdvReac Type Severity Reaction Status Date / Time No Known Allergies Allergy Verified 09/21/20 00:52 Home Meds: Home Meds Insulin Aspart [Novolog Flexpen] 3 - 4 units SUBCUT TIDM 06/22/14 [History] Sodium Bicarbonate 650 mg PO BID 07/27/17 [History] amLODIPine [Norvasc] 10 mg PO BEDTIME 07/27/17 [History] Acetaminophen 650 mg PO Q4HR PRN 03/31/20 [History] Aspirin [Aspir 81] 81 mg PO DAILY 03/31/20 [History] Cholecalciferol (Vitamin D3) [Vitamin D3] 2,000 unit PO DAILY 03/31/20 [History] Mycophenolate Sodium [Mycophenolic Acid] 720 mg PO Q12H 03/31/20 [History] Tacrolimus [Prograf] 2 mg PO BID 03/31/20 [History] atorvaSTATin [Lipitor] 10 mg PO BEDTIME 03/31/20 [History] carvediloL [Carvedilol] 12.5 mg PO BID 03/31/20 [History] Cefdinir 300 mg PO BID #20 capsule 09/21/20 [Rx] Cranberry 500 mg PO DAILY 09/21/20 [History] Insulin Glarg,Human.Rec.Analog [Lantus Solostar] 20 units SQ BEDTIME 09/21/20 [History] Past Medical History HEENT History: Reports: Other (See Below) Other HEENT History: Chorioretinal scar of both eyes. Wears reading glasses. Cardiovascular History: Reports: High Cholesterol, Hypertension, Syncope, Other (See Below) Other Cardiovascular History: Hyperlipidemia. 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 Neurological History: Reports: None Endocrine/Metabolic History: Reports: Diabetes, Type II Hematologic History: Reports: Anemia Immunologic History: Reports: Solid Organ Transplant Other Immunologic History: Left and right kidney transplant, in two procedures. - Infectious Disease History Infectious Disease History: Reports: C-Difficile, Mumps, Other (See Below) Other Infectious Disease History: Patient not sure if she had Measles or Rubella. - Past Surgical History HEENT Surgical History: Reports: Other (See Below) Other HEENT Surgeries/Procedures: Vitrectomy right eye. Cardiovascular Surgical History: Reports: None GI Surgical History: Reports: Colonoscopy Female Surgical History: Reports: Other (See Below) Other Female Surgeries/Procedures: Kidney transplant X2. Dialysis fistula creation to left AC area. Neurological Surgical History: Reports: None Musculoskeletal Surgical History: Reports: None Other Musculoskeletal Surgeries/Procedures:: Bone replaced by transplant. Social & Family History - Family History Family Medical History: No Pertinent Family History - Tobacco Use Tobacco Use Status *Q: Never Tobacco User - Caffeine Use Caffeine Use: Reports: None - Recreational Drug Use Recreational Drug Use: No ED ROS GENERAL - Review of Systems Review Of Systems: See Below Constitutional: Reports: No Symptoms HEENT: Reports: No Symptoms Respiratory: Reports: No Symptoms Cardiovascular: Reports: No Symptoms Endocrine: Reports: No Symptoms GI/Abdominal: Reports: No Symptoms : Reports: No Symptoms Musculoskeletal: Reports: No Symptoms Skin: Reports: No Symptoms ED EXAM, GENERAL - Physical Exam Exam: See Below Exam Limited By: No Limitations General Appearance: Alert, No Apparent Distress Eye Exam: Bilateral Eye: PERRL Ears: Normal External Exam, Normal Canal Nose: Normal Inspection, Normal Mucosa Throat/Mouth: Normal Inspection, Normal Lips Head: Atraumatic, Normocephalic Neck: Normal Inspection, Supple, Non-Tender, Full Range of Motion Respiratory/Chest: No Respiratory Distress, Lungs Clear, Normal Breath Sounds, No Accessory Muscle Use, Chest Non-Tender Cardiovascular: Normal Peripheral Pulses, Regular Rate, Rhythm, No Edema, No Gallop, No JVD, No Murmur, No Rub GI/Abdominal: Normal Bowel Sounds, Soft, Non-Tender, No Organomegaly, No Distention Back Exam: Normal Inspection, Full Range of Motion Extremities: Normal Inspection, Normal Range of Motion, Non-Tender Neurological: Alert, Oriented, CN II-XII Intact, Normal Cognition Course - Vital Signs Text/Narrative:: K=3.5 Last Recorded V/S: Last Vital Signs Temp 36.7 C 01/22/21 20:58 Pulse 70 01/22/21 20:58 Resp 16 01/22/21 20:58 BP 146/48 H 01/22/21 20:58 Pulse Ox 94 L 01/22/21 20:58 - Orders/Labs/Meds Labs: Laboratory Tests 01/22/21 Range/Units 21:10 Sodium 140 (135-145) mmol/L Potassium 5.0 D (3.5-5.3) mmol/L Chloride 104 (100-110) mmol/L Carbon Dioxide 29 (21-32) mmol/L BUN 25 H (7-18) mg/dL Creatinine 1.3 H (0.55-1.02) mg/dL Est Cr Clr Drug Dosing TNP Estimated GFR (MDRD) 40 L (>60) BUN/Creatinine Ratio 19.2 (9-20) Glucose 161 H (80-116) mg/dL Calcium 8.7 (8.6-10.2) mg/dL Departure - Departure Time of Disposition: 22:05 Disposition: Home, Self-Care 01 Condition: Good Clinical Impression: Dehydration, Renal transplant, status post - Discharge Information Instructions: Dehydration, Elderly, [id number] Referrals: Dean Hinkle MD [Primary Care Provider] - Forms: ED Department Discharge Additional Instructions: Please read discharge instructions on kidney transplant Drink at least 2 liters of water a day because you are dehydrated Follow up as needed Sepsis Event Note (ED) - Evaluation Sepsis Screening Result: No Definite Risk - Focused Exam Vital Signs: Vital Signs Temp Pulse Resp BP Pulse Ox 01/22/21 20:58 36.7 C 70 16 146/48 H 94 L
== END 2021-01-22 22:14 | disposition home or self-care (01) ==
LOC: FB.ED 20:47
DX: E86.0 Dehydration (principal); E78.00 Pure hypercholesterolemia, unspecified; I12.9 Hypertensive chronic kidney disease with stage 1 through stage 4 chronic kidney disease, or unspecified chronic kidney disease; E11.22 Type 2 diabetes mellitus with diabetic chronic kidney disease; N18.9 Chronic kidney disease, unspecified; Z94.0 Kidney transplant status
CPT/HCPCS: 36415; 80048; 99284

== ENCOUNTER 2021-06-13 09:43 | Emergency (ER) | payer MEDICARE, OTHER ==
[2021-06-13 09:53] VITALS: BP 153/64; PULSE 54
[2021-06-13] MEDS ORDERED: Sodium Chloride 0.9% 1,000 ML IV SCH (10:15)
--- NOTE | 2021-06-13 10:18 | EDM.PDOC ---
ED HPI GENERAL MEDICAL PROBLEM - General Chief Complaint: General Stated Complaint: LOW B/P Time Seen by Provider: 06/13/21 09:55 Source of Information: Reports: Patient History Limitations: Reports: No Limitations - History of Present Illness INITIAL COMMENTS - FREE TEXT/NARRATIVE: States she woke this am feeling tired , lightheaded .did not improve as she decide to check her BP Initially was in the 130's but as she continued to recheck the BP it started to drop to the 112, 120 systolic Normally she does run this low with no symptoms symptoms persisted and she called nurse line and was asked to come to the ER Still has lightheaded ness Yet to take her medications ( takes them at 9am) denies any cough , chest pain , fever or chills Onset: Today, Sudden Onset Date: 06/13/21 Duration: Hour(s): (2), Getting Worse Location: Reports: Generalized Severity: Moderate Improves with: Reports: Rest Worsens with: Reports: Movement (from sitting or laying down to standing) Context: Reports: Activity Associated Symptoms: Reports: Malaise, Weakness. Denies: Confusion, Chest Pain, Cough, Diaphoresis, Fever/Chills, Headaches, Loss of Appetite, Shortness of Breath, Syncope - Related Data Allergies Allergy/AdvReac Type Severity Reaction Status Date / Time No Known Allergies Allergy Verified 09/21/20 00:52 Home Meds: Home Meds Insulin Aspart [Novolog Flexpen] 3 - 4 units SUBCUT TIDM 06/22/14 [History] Sodium Bicarbonate 650 mg PO BID 07/27/17 [History] amLODIPine [Norvasc] 10 mg PO BEDTIME 07/27/17 [History] Acetaminophen 650 mg PO Q4HR PRN 03/31/20 [History] Aspirin [Aspir 81] 81 mg PO DAILY 03/31/20 [History] Cholecalciferol (Vitamin D3) [Vitamin D3] 4,000 unit PO DAILY 03/31/20 [History] Mycophenolate Sodium [Mycophenolic Acid] 720 mg PO Q12H 03/31/20 [History] Tacrolimus [Prograf] 2 mg PO BID 03/31/20 [History] atorvaSTATin [Lipitor] 10 mg PO BEDTIME 03/31/20 [History] carvediloL [Carvedilol] 25 mg PO BID 03/31/20 [History] Cranberry 500 mg PO DAILY 09/21/20 [History] Insulin Glarg,Human.Rec.Analog [Lantus Solostar] 20 units SQ BEDTIME 09/21/20 [History] Methylcellulose [Fiber Therapy] 500 mg PO DAILY 06/13/21 [History] cephALEXin [Keflex] 500 mg PO Q8H #21 cap 06/13/21 [Rx] Past Medical History HEENT History: Reports: Other (See Below) Other HEENT History: Chorioretinal scar of both eyes. Wears reading glasses. Cardiovascular History: Reports: High Cholesterol, Hypertension, Syncope, Other (See Below) Other Cardiovascular History: Hyperlipidemia. 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 Neurological History: Reports: None Endocrine/Metabolic History: Reports: Diabetes, Type II Hematologic History: Reports: Anemia Immunologic History: Reports: Solid Organ Transplant Other Immunologic History: Left and right kidney transplant, in two procedures. - Infectious Disease History Infectious Disease History: Reports: C-Difficile, Mumps, Other (See Below) Other Infectious Disease History: Patient not sure if she had Measles or Rubella. - Past Surgical History HEENT Surgical History: Reports: Other (See Below) Other HEENT Surgeries/Procedures: Vitrectomy right eye. Cardiovascular Surgical History: Reports: None GI Surgical History: Reports: Colonoscopy Female Surgical History: Reports: Other (See Below) Other Female Surgeries/Procedures: Kidney transplant X2. Dialysis fistula creation to left AC area. Neurological Surgical History: Reports: None Musculoskeletal Surgical History: Reports: None Other Musculoskeletal Surgeries/Procedures:: Bone replaced by transplant. Social & Family History - Family History Family Medical History: No Pertinent Family History - Tobacco Use Tobacco Use Status *Q: Never Tobacco User - Caffeine Use Caffeine Use: Reports: None - Recreational Drug Use Recreational Drug Use: No ED ROS GENERAL - Review of Systems Review Of Systems: See Below Constitutional: Reports: Malaise, Weakness, Fatigue HEENT: Reports: No Symptoms Respiratory: Reports: No Symptoms Cardiovascular: Denies: Chest Pain, Dyspnea on Exertion, Edema Endocrine: Reports: Fatigue. Denies: High Glucose, Low Glucose GI/Abdominal: Reports: No Symptoms : Reports: No Symptoms Musculoskeletal: Reports: No Symptoms Skin: Reports: No Symptoms Neurological: Reports: Dizziness, Weakness. Denies: Headache, Numbness, Syncope, Trouble Speaking, Difficulty Walking Psychiatric: Reports: No Symptoms Hematologic/Lymphatic: Reports: No Symptoms Immunologic: Reports: No Symptoms ED EXAM, GENERAL - Physical Exam Exam: See Below Exam Limited By: No Limitations General Appearance: Alert, WD/WN, No Apparent Distress Eye Exam: Bilateral Eye: EOMI Ears: Hearing Grossly Normal Nose: Normal Inspection Throat/Mouth: Normal Oropharynx Head: Atraumatic, Normocephalic Neck: Supple, Non-Tender Respiratory/Chest: Lungs Clear, Normal Breath Sounds Cardiovascular: Regular Rate, Rhythm, No Edema GI/Abdominal: Normal Bowel Sounds, Soft, Non-Tender (Female) Exam: Deferred Rectal (Female) Exam: Deferred Back Exam: Normal Inspection, Full Range of Motion Extremities: Normal Inspection, Normal Range of Motion, Non-Tender, No Pedal Edema Neurological: Alert, Oriented, CN II-XII Intact, Normal Cognition, Normal Reflexes, No Motor/Sensory Deficits Psychiatric: Normal Affect, Normal Mood Skin Exam: Warm, Dry, Intact, Normal Color, No Rash Lymphatic: No Adenopathy #1 Interpretation EKG Date: 06/13/21 Time: 10:08 Rhythm: NSR Rate (Beats/Min): 56 [place]: Normal P-Wave: Present QRS: Normal ST-T: Normal QT: Normal EKG Interpretation Comments: Normal Course - Vital Signs Last Recorded V/S: Last Vital Signs Temp 36.4 C 06/13/21 09:44 Pulse 54 L 06/13/21 09:44 Resp 20 06/13/21 09:44 BP 153/64 H 06/13/21 09:44 Pulse Ox 98 06/13/21 09:44 Orthostatic Blood Pressure [ 118/46 Standing] Orthostatic Blood Pressure [ 126/60 Sitting] Orthostatic Blood Pressure [ 149/62 Supine] - Orders/Labs/Meds Orders: Active Orders 24 hr Category Date Time Status CULTURE URINE [RM] Stat Lab 06/13/21 11:40 Received Dextrose 50% in Water Med 06/13/21 12:00 Active 50 ml IVPUSH ASDIRECTED PRN Glucagon,Human Recombinant [GlucaGen] Med 06/13/21 12:00 Active 1 mg IM ASDIRECTED PRN Sodium Chloride 0.9% [Normal Saline] 1,000 ml Med 06/13/21 10:15 Active IV ASDIRECTED EKG 12 Lead [EK] Routine Ther 06/13/21 10:07 Ordered Medication Orders Dextrose/Water (50% Dextrose In Water 50 Ml Syringe) 50 ml IVPUSH ASDIRECTED PRN PRN Reason: Hypoglycemia Glucagon (Glucagon,Human Recombinant 1 Mg Vial) 1 mg IM ASDIRECTED PRN PRN Reason: Hypoglycemia Sodium Chloride (Normal Saline) 1,000 mls @ 500 mls/hr IV ASDIRECTED BROOKE Last Admin: 06/13/21 10:20 Dose: 500 mls/hr Documented by: NATALIE Labs: Laboratory Tests 06/13/21 06/13/21 06/13/21 Range/Units 10:12 10:12 10:12 WBC 6.1 (3.0-10.3) x10-3/uL RBC 4.22 (3.60-5.20) x10(6)uL Hgb 12.6 (11.4-15.5) g/dL Hct 39.1 (34.2-48.2) % MCV 92.6 (76.7-100.5) fL MCH 29.8 (23.9-33.9) pg MCHC 32.2 (31.9-34.8) g/dL RDW 15.1 (12.3-16.5) % Plt Count 223 (151-488) x10(3)uL MPV 8.9 (7.1-12.4) fL Neut % (Auto) 74.8 (30.8-76.2) % Lymph % (Auto) 15.7 L (18.4-52.1) % [place] % (Auto) 8.0 (4.4-15.7) % Eos % (Auto) 0.5 L (0.6-8.1) % Baso % (Auto) 1.0 (0.2-1.5) % Neut # (Auto) 4.5 (1.5-6.3) x10-3/uL Lymph # (Auto) 1.0 (1.0-4.4) x10-3/uL [place] # (Auto) 0.5 (0.3-1.0) x10-3/uL Eos # (Auto) 0.0 (0.0-0.8) x10-3/uL Baso # (Auto) 0.1 (0.0-0.1) x10-3/uL Sodium 141 (135-145) mmol/L Potassium 5.7 H (3.5-5.3) mmol/L Chloride 107 (100-110) mmol/L Carbon Dioxide 27 (21-32) mmol/L BUN 22 H (7-18) mg/dL Creatinine 1.0 (0.55-1.02) mg/dL Est Cr Clr Drug Dosing 42.68 mL/min Estimated GFR (MDRD) 55 L (>60) BUN/Creatinine Ratio 22.0 H (9-20) Glucose 196 H (80-116) mg/dL Calcium 9.2 (8.6-10.2) mg/dL Magnesium (1.8-2.5) mg/dL Total Bilirubin 0.4 (0.1-1.3) mg/dL AST 22 D (5-25) IU/L ALT 24 D (12-36) U/L Alkaline Phosphatase 108 (56-112) IU/L Troponin I 8.1 (4.0-60.3) pg/mL NT-Pro-B Natriuret Pep 1112 H* (<=125) pg/mL Total Protein 7.2 (6.0-8.0) g/dL Albumin 3.2 (3.2-4.6) g/dL Globulin 4.0 g/dL Albumin/Globulin Ratio 0.8 TSH, Ultra Sensitive (0.36-3.74) IU/mL Urine Color (YELLOW) Urine Appearance (CLEAR) Urine pH (5.0-6.5) Ur Specific [place] (1.010-1.025) Urine Protein (NEGATIVE) mg/dL Urine Glucose (UA) (NORMAL) mg/dL Urine Ketones (NEGATIVE) mg/dL Urine Occult Blood (NEGATIVE) Urine Nitrite (NEGATIVE) Urine Bilirubin (NEGATIVE) Urine Urobilinogen (NEGATIVE) mg/dL Ur Leukocyte Esterase (NEGATIVE) U Hyaline Cast (Auto) (NS) Urine RBC (0-5) Urine WBC (0-5) Ur Squamous Epith Cells (NS,R,O) Urine Bacteria (NS) 06/13/21 06/13/2121 Range/Units 10:12 10:12 11:40 WBC (3.0-10.3) x10-3/uL RBC (3.60-5.20) x10(6)uL Hgb (11.4-15.5) g/dL Hct (34.2-48.2) % MCV (76.7-100.5) fL MCH (23.9-33.9) pg MCHC (31.9-34.8) g/dL RDW (12.3-16.5) % Plt Count (151-488) x10(3)uL MPV (7.1-12.4) fL Neut % (Auto) (30.8-76.2) % Lymph % (Auto) (18.4-52.1) % [place] % (Auto) (4.4-15.7) % Eos % (Auto) (0.6-8.1) % Baso % (Auto) (0.2-1.5) % Neut # (Auto) (1.5-6.3) x10-3/uL Lymph # (Auto) (1.0-4.4) x10-3/uL [place] # (Auto) (0.3-1.0) x10-3/uL Eos # (Auto) (0.0-0.8) x10-3/uL Baso # (Auto) (0.0-0.1) x10-3/uL Sodium (135-145) mmol/L Potassium (3.5-5.3) mmol/L Chloride (100-110) mmol/L Carbon Dioxide (21-32) mmol/L BUN (7-18) mg/dL Creatinine (0.55-1.02) mg/dL Est Cr Clr Drug Dosing mL/min Estimated GFR (MDRD) (>60) BUN/Creatinine Ratio (9-20) Glucose (80-116) mg/dL Calcium (8.6-10.2) mg/dL Magnesium 1.8 (1.8-2.5) mg/dL Total Bilirubin (0.1-1.3) mg/dL AST (5-25) IU/L ALT (12-36) U/L Alkaline Phosphatase (56-112) IU/L Troponin I (4.0-60.3) pg/mL NT-Pro-B Natriuret Pep (<=125) pg/mL Total Protein (6.0-8.0) g/dL Albumin (3.2-4.6) g/dL Globulin g/dL Albumin/Globulin Ratio TSH, Ultra Sensitive 0.60 (0.36-3.74) IU/mL Urine Color Yellow (YELLOW) Urine Appearance Slightly cloudy (CLEAR) Urine pH 5.0 (5.0-6.5) Ur Specific [place] 1.025 (1.010-1.025) Urine Protein Trace (NEGATIVE) mg/dL Urine Glucose (UA) 50 H (NORMAL) mg/dL Urine Ketones Negative (NEGATIVE) mg/dL Urine Occult Blood Negative (NEGATIVE) Urine Nitrite Negative (NEGATIVE) Urine Bilirubin Negative (NEGATIVE) Urine Urobilinogen Normal (NEGATIVE) mg/dL Ur Leukocyte Esterase Small H (NEGATIVE) U Hyaline Cast (Auto) Many H (NS) Urine RBC 0-5 (0-5) Urine WBC 5-10 H (0-5) Ur Squamous Epith Cells Moderate H (NS,R,O) Urine Bacteria Moderate H (NS) Meds: Medications Generic Name Dose Route Start Last Admin Trade Name Freq PRN Reason Stop Dose Admin Dextrose/Water 50 ml 06/13/21 12:00 50% Dextrose In Water 50 Ml Syringe IVPUSH ASDIRECTED PRN Hypoglycemia Glucagon 1 mg 06/13/21 12:00 Glucagon,Human Recombinant 1 Mg Vial IM ASDIRECTED PRN Hypoglycemia Sodium Chloride 1,000 mls @ 500 mls/hr 06/13/21 10:15 06/13/21 10:20 Normal Saline IV 500 mls/hr ASDIRECTED BROOKE Administration Discontinued Medications Generic Name Dose Route Start Last Admin Trade Name Freq PRN Reason Stop Dose Admin Ciprofloxacin 500 mg 06/13/21 12:03 06/13/21 13:44 Ciprofloxacin 500 Mg Tab PO 06/13/21 12:04 500 mg ONETIME ONE Administration Furosemide 20 mg 06/13/21 13:39 Furosemide 40 Mg/4 Ml Vial IVPUSH 06/13/21 13:40 NOW ONE Ceftriaxone Sodium 1 gm/ 50 mls @ 200 mls/hr 06/13/21 12:03 06/13/21 13:44 Sodium Chloride IV 06/13/21 12:17 200 mls/hr ONETIME ONE Administration Insulin Human Regular 4 unit 06/13/21 12:00 06/13/21 13:49 Insulin Regular, Human 100 Units/Ml 3 Ml Vial SUBCUT 06/13/21 12:01 3 units ONETIME ONE Administration Sodium Polystyrene Sulfonate 15 gm 06/13/21 13:44 Sodium Polystyrene Sulfonate 15 Gm/60 Ml Susp 60 Ml Bot PO 06/13/21 13:45 ONETIME ONE - Re-Assessments/Exams Free Text/Narrative Re-Assessment/Exam: 06/13/21 10:25 Pt is stable labs EKG done Will need repeat orthostatics 06/13/21 10:53 pt noted to have elevated BNP, IVF discontinued 06/13/21 13:40 lasix given , pt restarted on Iv antibiotics for UTI discussed need to complete course of antibiotics and avoid repeat UTI Pt showed understanding Urine sent for cultures Departure - Departure Time of Disposition: 14:40 Disposition: Home, Self-Care 01 Condition: Good Clinical Impression: Recurrent UTI (urinary tract infection), Dehydration - Discharge Information *PRESCRIPTION DRUG MONITORING PROGRAM REVIEWED*: Not Applicable *COPY OF PRESCRIPTION DRUG MONITORING REPORT IN PATIENT VERA: Not Applicable Prescriptions: cephALEXin [Keflex] 500 mg PO Q8H #21 cap Instructions: Urinary Tract Infection, Adult, [id number], Dehydration, Elderly, [id number] Referrals: Dean Hinkle MD [Primary Care Provider] - Forms: ED Department Discharge Additional Instructions: Make appointment to follow up with Dr Hinkle in 3-5 days for repeat labs Ok to continue BP medications as prescribed with no changes till seen by Dr Hinkle Low salt diet Check BP as recommended by PCP Sepsis Event Note (ED) - Evaluation Sepsis Screening Result: No Definite Risk - Focused Exam Vital Signs: Vital Signs Temp Pulse Resp BP Pulse Ox 06/13/21 09:44 36.4 C 54 L 20 153/64 H 98 - My Orders Last 24 Hours: My Active Orders 06/13/21 10:07 EKG 12 Lead [EK] Routine 06/13/21 10:15 Sodium Chloride 0.9% [Normal Saline] 1,000 ml IV ASDIRECTED 06/13/21 11:40 CULTURE URINE [RM] Stat 06/13/21 12:00 Dextrose 50% in Water 50 ml IVPUSH ASDIRECTED PRN Glucagon,Human Recombinant [GlucaGen] 1 mg IM ASDIRECTED PRN - Assessment/Plan Last 24 Hours: My Active Orders 06/13/21 10:07 EKG 12 Lead [EK] Routine 06/13/21 10:15 Sodium Chloride 0.9% [Normal Saline] 1,000 ml IV ASDIRECTED 06/13/21 11:40 CULTURE URINE [RM] Stat 06/13/21 12:00 Dextrose 50% in Water 50 ml IVPUSH ASDIRECTED PRN Glucagon,Human Recombinant [GlucaGen] 1 mg IM ASDIRECTED PRN
[2021-06-13] MEDS ORDERED: Insulin Regular, Human 100 Units/ML 3 ML Vial SUBCUT ONE (12:00)
[2021-06-13] MEDS ORDERED: 50% Dextrose in Water 50 ML Syringe IVPUSH PRN (12:00)
[2021-06-13] MEDS ORDERED: Glucagon,Human Recombinant 1 MG Vial IM PRN (12:00)
[2021-06-13] MEDS ORDERED: Ciprofloxacin 500 MG Tab PO ONE (12:03)
[2021-06-13] MEDS ORDERED: cefTRIAXone 1 GM in Sodium Chloride 0.9% 50 ML IV ONE (12:03)
[2021-06-13] MEDS ORDERED: Furosemide 40 MG/4 ML VIAL IVPUSH ONE (13:39)
[2021-06-13] MEDS ORDERED: Sodium Polystyrene Sulfonate 15 GM/60 ML Susp 60 ML Bot PO ONE (13:44)
== END 2021-06-13 14:45 | disposition home or self-care (01) ==
LOC: FB.ED 09:43
DX: N39.0 Urinary tract infection, site not specified (principal); E86.0 Dehydration; E78.00 Pure hypercholesterolemia, unspecified; I12.9 Hypertensive chronic kidney disease with stage 1 through stage 4 chronic kidney disease, or unspecified chronic kidney disease; E11.22 Type 2 diabetes mellitus with diabetic chronic kidney disease; N18.9 Chronic kidney disease, unspecified; M19.90 Unspecified osteoarthritis, unspecified site; Z79.4 Long term (current) use of insulin; Z79.899 Other long term (current) drug therapy; Z79.82 Long term (current) use of aspirin
CPT/HCPCS: 36415; 80053; 81001; 83735; 83880; 84443; 84484; 85025; 87086; 87088; 87186; 93005; 96365; 96375; 99284; A9270; J0696; J1815; J7030

== ENCOUNTER 2021-09-06 05:15 | Emergency (ER) | payer MEDICARE, OTHER ==
[2021-09-06 05:32] VITALS: BP 147/64; PULSE 60
[2021-09-06] MEDS ORDERED: Iopamidol 755 Mg/ML 75 ML Bottle IV ONE (07:52)
[2021-09-06] MEDS ORDERED: Sodium Chloride 0.9% 500 ML IV ONE (08:08)
[2021-09-06] MEDS ORDERED: Ciprofloxacin in D5W 400 MG in Premix Bag 1 BAG IV ONE ×2 (09:20)
== END 2021-09-06 11:15 | disposition home or self-care (01) ==
LOC: FB.ED 05:15 → SUPCPDRO 05:15 → FB.ED 11:15
DX: N30.01 Acute cystitis with hematuria (principal); E11.9 Type 2 diabetes mellitus without complications; E78.00 Pure hypercholesterolemia, unspecified; I10 Essential (primary) hypertension; Z79.4 Long term (current) use of insulin; Z79.899 Other long term (current) drug therapy; Z94.0 Kidney transplant status
CPT/HCPCS: 36415; 74178; 80053; 81001; 85025; 87086; 87088; 87186; 96365; 99284-25; J0744; J7040; Q9967

== ENCOUNTER 2021-10-15 12:11 | Emergency (ER) | payer MEDICARE, OTHER ==
[2021-10-15] MEDS ORDERED: Sodium Chloride 0.9% 10 ML Syringe FLUSH PRN ×2 (12:33→13:51)
[2021-10-15] MEDS ORDERED: Iopamidol 755 Mg/ML 75 ML Bottle IV ONE (14:16)
[2021-10-15 16:31] VITALS: BP 134/47; PULSE 72
== END 2021-10-15 15:42 | disposition home or self-care (01) ==
LOC: SUPCPDRO 12:11 → FB.ED 12:11
DX: U07.1 COVID-19 (principal); J12.82 Pneumonia due to coronavirus disease 2019; E78.00 Pure hypercholesterolemia, unspecified; I12.9 Hypertensive chronic kidney disease with stage 1 through stage 4 chronic kidney disease, or unspecified chronic kidney disease; E11.22 Type 2 diabetes mellitus with diabetic chronic kidney disease; N18.9 Chronic kidney disease, unspecified; Z79.4 Long term (current) use of insulin; Z79.899 Other long term (current) drug therapy
CPT/HCPCS: 36415; 71045; 71275; 80053; 83880; 84484; 85025; 85379; 99284; Q9967

== ENCOUNTER 2021-11-12 21:05 | Emergency (ER) | payer MEDICARE, OTHER ==
[2021-11-12] MEDS ORDERED: Sodium Bicarbonate 650 MG Tab PO ONE (21:06)
[2021-11-12] MEDS ORDERED: Carvedilol 12.5 MG Tab PO ONE (21:06)
== END 2021-11-12 21:06 | disposition home or self-care (01) ==
LOC: FB.MEDS 21:05 → FB.ED 21:05 → FB.MEDS 21:06
DX: Z53.21 Procedure and treatment not carried out due to patient leaving prior to being seen by health care provider (principal)
CPT/HCPCS: A9270-GY

== ENCOUNTER 2021-12-09 10:41 | Emergency (ER) | payer MEDICARE, OTHER ==
[2021-12-09] MEDS ORDERED: Sodium Chloride 0.9% 10 ML Syringe FLUSH PRN (10:48)
[2021-12-09] MEDS ORDERED: Clopidogrel 75 MG Tab PO ONE (11:34)
[2021-12-09] MEDS ORDERED: Aspirin 81 MG Tab.Chew PO ONE (11:34)
[2021-12-09] MEDS ORDERED: Gadoteridol 279.3 MG/ML 10 ML SDV IVPUSH ONE (15:10)
[2021-12-09 15:26] VITALS: PULSE 67
[2021-12-09 17:16] VITALS: BP 147/67
== END 2021-12-09 16:50 | disposition home or self-care (01) ==
LOC: FB.ED 10:41
DX: G45.9 Transient cerebral ischemic attack, unspecified (principal); E11.22 Type 2 diabetes mellitus with diabetic chronic kidney disease; E78.00 Pure hypercholesterolemia, unspecified; I12.9 Hypertensive chronic kidney disease with stage 1 through stage 4 chronic kidney disease, or unspecified chronic kidney disease; N18.9 Chronic kidney disease, unspecified; Z79.4 Long term (current) use of insulin; Z79.899 Other long term (current) drug therapy
CPT/HCPCS: 36415; 70450; 70544; 70549; 70551; 80053; 81001; 82947; 84484; 85025; 85610; 85730; 87086; 93005; 93010; 99283; 99285-25; A9270-GY; A9579

== ENCOUNTER 2021-12-12 05:31 | Observation (INO) | payer MEDICARE, OTHER ==
[2021-12-12] MEDS ORDERED: Magnesium Hydroxide 400 MG/5 ML Susp 30 ML Cup PO PRN (08:27)
[2021-12-12] MEDS ORDERED: Acetaminophen 325 MG Tab PO PRN (08:27)
[2021-12-12] MEDS ORDERED: Zolpidem 5 MG Tab PO PRN (08:27)
[2021-12-12] MEDS ORDERED: Dextrose 5%-0.45% NaCl 1,000 ML IV SCH (08:30)
[2021-12-12] MEDS ORDERED: Enoxaparin 30 MG/0.3 ML Syringe SUBCUT SCH (08:30)
[2021-12-12] MEDS ORDERED: cefTRIAXone 1 GM Vial IVPUSH SCH (09:00)
[2021-12-12] MEDS: Sodium Chloride 0.9% 10 ML Syringe FLUSH PRN (09:20)
[2021-12-12] MEDS ORDERED: Azithromycin 500 MG in Sodium Chloride 0.9% 250 ML IV SCH (09:30)
[2021-12-12] MEDS ORDERED: Glucagon,Human Recombinant 1 MG Vial IM PRN (09:55)
[2021-12-12] MEDS ORDERED: 50% Dextrose in Water 50 ML Syringe IVPUSH PRN (09:55)
[2021-12-12] MEDS ORDERED: AZITHROMYCIN 250 MG PO SCH (10:00)
[2021-12-12] MEDS ORDERED: Acetaminophen 500 MG Tab PO PRN (10:13)
[2021-12-12] MEDS: Cranberry 500 MG Cap *PTOM PO SCH (10:38)
[2021-12-12] MEDS: PREDNISONE 10 MG PO SCH (10:39)
[2021-12-12] MEDS: Pantoprazole 20 MG Tab, Delayed Release *PTOM PO SCH (10:40)
[2021-12-12] MEDS: Clopidogrel 75 MG Tab *PTOM PO SCH (10:40)
[2021-12-12] MEDS: SODIUM BICARBONATE 650 MG PO SCH ×2 (10:41→20:36)
[2021-12-12] MEDS: TACROLIMUS 0.5 MG PO SCH (10:43)
[2021-12-12] MEDS: Carvedilol 12.5 MG Tab *PTOM PO SCH ×2 (10:51→20:35)
[2021-12-12] MEDS: NOVOLOG SUBCUT SCH ×3 (12:03→21:02)
[2021-12-12] MEDS ORDERED: TACROLIMUS 0.5 MG PO SCH (21:00)
[2021-12-12] MEDS ORDERED: atorvaSTATin 10 MG Tab *PTOM PO SCH (21:00)
[2021-12-12] MEDS ORDERED: Insulin Glargine,Human Rec. Analog 100 Units/ML 3 ML Pen *PTOM SUBCUT SCH (21:00)
[2021-12-13] MEDS: Sodium Chloride 0.9% 10 ML Syringe FLUSH PRN (07:55)
[2021-12-13] MEDS: NOVOLOG SUBCUT SCH (07:57)
[2021-12-13] MEDS: SODIUM BICARBONATE 650 MG PO SCH (07:59)
[2021-12-13] MEDS: TACROLIMUS 0.5 MG PO SCH (07:59)
[2021-12-13] MEDS: PREDNISONE 10 MG PO SCH (08:00)
[2021-12-13] MEDS: Clopidogrel 75 MG Tab *PTOM PO SCH (08:00)
[2021-12-13] MEDS: Carvedilol 12.5 MG Tab *PTOM PO SCH (08:01)
[2021-12-13] MEDS: Pantoprazole 20 MG Tab, Delayed Release *PTOM PO SCH (08:01)
[2021-12-13 08:02] VITALS: BP 177/68; PULSE 64
[2021-12-13] MEDS: Cranberry 500 MG Cap *PTOM PO SCH (08:02)
[2021-12-13] MEDS ORDERED: Cholecalciferol (Vitamin D3) 25 MCG Tab *PTOM PO SCH (09:00)
== END 2021-12-13 12:10 | disposition home or self-care (01) ==
LOC: FB.ED 05:31 → FB.MS 07:53
PROVIDERS: ADMIT Family Medicine; ATTEND Family Medicine
DX: R53.1 Weakness (principal); M79.602 Pain in left arm; J96.11 Chronic respiratory failure with hypoxia; E78.00 Pure hypercholesterolemia, unspecified; I12.9 Hypertensive chronic kidney disease with stage 1 through stage 4 chronic kidney disease, or unspecified chronic kidney disease; N17.9 Acute kidney failure, unspecified; N18.9 Chronic kidney disease, unspecified; E11.22 Type 2 diabetes mellitus with diabetic chronic kidney disease; M81.0 Age-related osteoporosis without current pathological fracture; Z98.890 Other specified postprocedural states; Z86.16 Personal history of COVID-19; Z79.899 Other long term (current) drug therapy; Z99.81 Dependence on supplemental oxygen; Z79.4 Long term (current) use of insulin
CPT/HCPCS: 36415; 70450; 71046; 80048; 80053; 81001; 83880; 84484; 85025; 86140; 93005; 93010; 93306; 99284; 99285-25; A9270-GY; G0378; J1815-GY; J3490; J7507; J7512

== ENCOUNTER 2022-12-06 07:54 | Emergency (ER) | payer MEDICARE, OTHER ==
[2022-12-06 08:45] LABS: ESTIMATED GFR 48 mL/min (>60)
[2022-12-06] MEDS ORDERED: Magnesium Sulfate/Water 4 GM in Premix Bag 1 BAG IV ONE (08:53)
[2022-12-06 09:00] LABS: CORONAVIRUS COVID-19 NAA NEGATIVE (NEGATIVE)
[2022-12-06] MEDS ORDERED: Magnesium Sulfate/Water 50 ML ONE (09:01)
[2022-12-06] MEDS ORDERED: cefTRIAXone 1 GM Vial IVPUSH STA (11:04)
[2022-12-06 13:35] VITALS: BP 154/59; PULSE 68
== END 2022-12-06 12:50 | disposition home or self-care (01) ==
LOC: FB.ED 07:54
DX: N39.0 Urinary tract infection, site not specified (principal); E86.0 Dehydration; E83.42 Hypomagnesemia; D72.829 Elevated white blood cell count, unspecified; E78.00 Pure hypercholesterolemia, unspecified; I12.9 Hypertensive chronic kidney disease with stage 1 through stage 4 chronic kidney disease, or unspecified chronic kidney disease; E11.22 Type 2 diabetes mellitus with diabetic chronic kidney disease; N18.9 Chronic kidney disease, unspecified; E78.5 Hyperlipidemia, unspecified; Z79.4 Long term (current) use of insulin; Z79.899 Other long term (current) drug therapy; Z79.02 Long term (current) use of antithrombotics/antiplatelets; Z20.822 Contact with and (suspected) exposure to COVID-19; Z94.0 Kidney transplant status; Z99.81 Dependence on supplemental oxygen
CPT/HCPCS: 0241U; 36415; 71046; 80053; 81001; 83605; 83735; 85025; 86140; 87086; 87088; 87186; 96365; 96366; 96375; 99285; J0696; J3475

== ENCOUNTER 2023-02-28 20:51 | Emergency (ER) | payer MEDICARE ==
[2023-02-28] MEDS ORDERED: Cephalexin 500 MG Cap PO ONE ×2 (20:52→21:22)
[2023-02-28 21:17] VITALS: BP 162/72; PULSE 79
== END 2023-02-28 21:31 | disposition home or self-care (01) ==
LOC: FB.ED 20:51
DX: L03.031 Cellulitis of right toe (principal); L84 Corns and callosities; I12.9 Hypertensive chronic kidney disease with stage 1 through stage 4 chronic kidney disease, or unspecified chronic kidney disease; E11.22 Type 2 diabetes mellitus with diabetic chronic kidney disease; N18.9 Chronic kidney disease, unspecified; D63.1 Anemia in chronic kidney disease; E78.00 Pure hypercholesterolemia, unspecified; F17.210 Nicotine dependence, cigarettes, uncomplicated; Z79.4 Long term (current) use of insulin; Z79.899 Other long term (current) drug therapy; Z79.02 Long term (current) use of antithrombotics/antiplatelets
CPT/HCPCS: 99283; A9270

== ENCOUNTER 2023-09-27 21:59 | Emergency (ER) | payer MEDICARE, OTHER ==
[2023-09-27 22:46] VITALS: BP 149/51; PULSE 72
[2023-09-27 22:58] LABS: BLOOD UREA NITROGEN,BUN 24 mg/dL (7-18); BUN/CREATININE RATIO 21.8 (9-20); CALCIUM 9.4 mg/dL (8.6-10.2); CARBON DIOXIDE,CO2 25 mmol/L (21-32); CHLORIDE,CL 103 mmol/L (100-110); CREATININE 1.1 mg/dL (0.55-1.02); EST CRCL DRUG DOSING (CG) 36.02 mL/min; ESTIMATED GFR 53 mL/min (>60); GLUCOSE RANDOM 322 mg/dL (80-116); POTASSIUM,K 5.9 mmol/L (3.5-5.3); SODIUM,NA 135 mmol/L (135-145)
[2023-09-27] MEDS ORDERED: Glucagon,Human Recombinant 1 MG Vial IM PRN (23:36)
[2023-09-27] MEDS ORDERED: 50% Dextrose in Water 50 ML Syringe IVPUSH PRN (23:36)
[2023-09-28] MEDS: Sodium Chloride 0.9% 1,000 ML IV SCH (00:02)
[2023-09-28] MEDS: Lactulose Soln 10 GM/15 ML 30 ML UD Cup PO ONE (00:02)
[2023-09-28] MEDS: Insulin Regular, Human 100 Units/ML 3 ML Vial IV ONE (00:03)
== END 2023-09-28 01:44 | disposition home or self-care (01) ==
LOC: FB.ED 21:59
DX: E87.5 Hyperkalemia (principal); E86.0 Dehydration; R79.89 Other specified abnormal findings of blood chemistry; I10 Essential (primary) hypertension; E78.00 Pure hypercholesterolemia, unspecified; E11.9 Type 2 diabetes mellitus without complications; Z86.16 Personal history of COVID-19; Z79.4 Long term (current) use of insulin; Z79.2 Long term (current) use of antibiotics; Z79.899 Other long term (current) drug therapy
CPT/HCPCS: 36415; 80048; 82947; 84132; 96360; 99284; 99284-25; A9270-GY; J1815-GY; J7030

== ENCOUNTER 2024-05-13 06:00 | Emergency (ER) | payer MEDICARE ==
[2024-05-13] MEDS ORDERED: Sulfamethoxazole/Trimethoprim 800-160 MG Tab PO ONE (06:01)
[2024-05-13 06:11] VITALS: BP 141/52; PULSE 61
[2024-05-13 06:22] LABS: BILIRUBIN,URINE NEGATIVE (NEGATIVE); GLUCOSE,URINE NORMAL (NORMAL); KETONES,URINE NEGATIVE (NEGATIVE); LEUKOCYTE ESTERASE,URINE LARGE (NEGATIVE); NITRITE,URINE POSITIVE (NEGATIVE); OCCULT BLOOD,URINE MODERATE (NEGATIVE); PROTEIN,URINE 100 mg/dL (NEGATIVE); UROBILINOGEN,URINE NORMAL (NEGATIVE)
[2024-05-13 06:24] LABS: APPEARANCE,URINE CLOUDY (CLEAR); BACTERIA,URINE MODERATE (NS); COLOR,URINE YELLOW (YELLOW); SQUAMOUS EPITHELIAL CELLS,UR FEW (NS,R,O); WBC,URINE 30-40 (0-5)
== END 2024-05-13 06:36 | disposition home or self-care (01) ==
LOC: FB.ED 06:00
DX: N39.0 Urinary tract infection, site not specified (principal); I12.9 Hypertensive chronic kidney disease with stage 1 through stage 4 chronic kidney disease, or unspecified chronic kidney disease; N18.9 Chronic kidney disease, unspecified; E78.00 Pure hypercholesterolemia, unspecified; E11.22 Type 2 diabetes mellitus with diabetic chronic kidney disease; Z86.16 Personal history of COVID-19; Z79.52 Long term (current) use of systemic steroids; Z79.899 Other long term (current) drug therapy; Z79.4 Long term (current) use of insulin
CPT/HCPCS: 81001; 87086; 87088; 87186; 99283; A9270-GY

== ENCOUNTER 2024-05-19 19:14 | Emergency (ER) | payer MEDICARE ==
[2024-05-19 19:34] VITALS: BP 144/59; PULSE 64
[2024-05-19 19:42] LABS: BILIRUBIN,URINE NEGATIVE (NEGATIVE); GLUCOSE,URINE NORMAL (NORMAL); KETONES,URINE NEGATIVE (NEGATIVE); LEUKOCYTE ESTERASE,URINE LARGE (NEGATIVE); NITRITE,URINE POSITIVE (NEGATIVE); OCCULT BLOOD,URINE MODERATE (NEGATIVE); PROTEIN,URINE TRACE mg/dL (NEGATIVE); UROBILINOGEN,URINE NORMAL (NEGATIVE)
[2024-05-19 19:47] LABS: APPEARANCE,URINE CLOUDY (CLEAR); BACTERIA,URINE MANY (NS); COLOR,URINE YELLOW (YELLOW); SQUAMOUS EPITHELIAL CELLS,UR FEW (NS,R,O); WBC,URINE 75-100 (0-5)
[2024-05-19] MEDS: Phenazopyridine 95 MG Tab PO STA (20:09)
[2024-05-19] MEDS: Sulfamethoxazole/Trimethoprim 800-160 MG Tab PO ONE (20:09)
== END 2024-05-19 20:15 | disposition home or self-care (01) ==
LOC: FB.ED 19:14
DX: N39.0 Urinary tract infection, site not specified (principal); I12.9 Hypertensive chronic kidney disease with stage 1 through stage 4 chronic kidney disease, or unspecified chronic kidney disease; N18.9 Chronic kidney disease, unspecified; E78.00 Pure hypercholesterolemia, unspecified; E11.22 Type 2 diabetes mellitus with diabetic chronic kidney disease; Z86.16 Personal history of COVID-19; Z79.899 Other long term (current) drug therapy; Z79.4 Long term (current) use of insulin; Z79.52 Long term (current) use of systemic steroids
CPT/HCPCS: 81001; 87086; 87088; 87186; 99283; A9270

== ENCOUNTER 2025-07-17 13:10 | Emergency (ER) | payer MEDICARE ==
[2025-07-17] MEDS ORDERED: Lidocaine 1% with EPINEPHrine 1:100,000 20 ML MDV INFILT ONE (13:11)
[2025-07-17 17:23] VITALS: BP 118/52; PULSE 71
== END 2025-07-17 14:45 | disposition home or self-care (01) ==
LOC: FB.ED 13:10
DX: S01.81XA Laceration without foreign body of other part of head, initial encounter (principal); S01.21XA Laceration without foreign body of nose, initial encounter; I12.9 Hypertensive chronic kidney disease with stage 1 through stage 4 chronic kidney disease, or unspecified chronic kidney disease; E11.22 Type 2 diabetes mellitus with diabetic chronic kidney disease; N18.9 Chronic kidney disease, unspecified; E78.00 Pure hypercholesterolemia, unspecified; Z79.4 Long term (current) use of insulin; Z79.899 Other long term (current) drug therapy; Z79.01 Long term (current) use of anticoagulants; Z86.16 Personal history of COVID-19; W01.198A Fall on same level from slipping, tripping and stumbling with subsequent striking against other object, initial encounter
CPT/HCPCS: 12013; 99282; J2004